=== PATIENT | female | born 1990 | race Caucasian/White ===

== ENCOUNTER 2023-03-19 07:15 | Inpatient (IN) | payer BC ==
[2023-03-19] MEDS ORDERED: Scopolamine 1.5 MG Transdermal Patch TRDERM ONE (08:00)
[2023-03-19] MEDS ORDERED: Celecoxib 200 MG Cap PO ONE (08:00)
[2023-03-19 08:07] LABS: HEMOGLOBIN A1C 5.3 % (4.5-6.2)
[2023-03-19] MEDS ORDERED: Dextrose 5%-Lactated Ringers 1,000 ML IV SCH ×2 (08:15→17:15)
[2023-03-19 08:20] LABS: ESTIMATED GFR 87 mL/min (>60)
[2023-03-19] MEDS ORDERED: Rocuronium 50 MG/5 ML Vial ONE (08:40)
[2023-03-19] MEDS ORDERED: Succinylcholine 200 MG/10 ML MDV ONE (08:40)
[2023-03-19] MEDS ORDERED: Neostigmine Methylsulfate 1 MG/ML 5 ML Syringe ONE (08:40)
[2023-03-19] MEDS ORDERED: Glycopyrrolate 0.2 MG/ML 5 ML MDV ONE (08:40)
[2023-03-19] MEDS ORDERED: Propofol 200 MG/20 ML SDV ONE (08:40)
[2023-03-19] MEDS ORDERED: Dexamethasone 4 MG/ML SDV ONE (08:40)
[2023-03-19] MEDS ORDERED: Ondansetron 4 MG/2 ML SDV ONE (08:40)
[2023-03-19] MEDS ORDERED: fentaNYL 250 MCG/5 ML SDV ONE ×3 (08:42→15:26)
[2023-03-19] MEDS ORDERED: cefOXitin 2 GM in Sodium Chloride 0.9% 50 ML IV ONE (09:00)
[2023-03-19] MEDS ORDERED: Ketamine 17 MG in Sodium Chloride 0.9% 19.83 ML IV SCH (09:30)
[2023-03-19] MEDS ORDERED: Ketamine 500 MG/5 ML MDV IV SCH (09:30)
[2023-03-19] MEDS ORDERED: cefOXitin 2 GM Vial ONE (12:49)
[2023-03-19] MEDS ORDERED: Indocyanine Green 25 MG SDV ONE (14:47)
[2023-03-19] MEDS ORDERED: Cyclobenzaprine 10 MG Tab PO PRN (17:06)
[2023-03-19] MEDS ORDERED: ALPRAZolam 0.5 MG Tab PO PRN (17:11)
[2023-03-19] MEDS ORDERED: HYDROmorphone 1 MG/ML Syringe IV PRN (18:00)
[2023-03-19] MEDS ORDERED: Metoclopramide 10 MG/2 ML SDV IVPUSH PRN (18:00)
[2023-03-19] MEDS ORDERED: Ondansetron 4 MG/2 ML SDV IVPUSH PRN (18:00)
[2023-03-19] MEDS ORDERED: MVI, Adult with Vitamin K 10 ML, Thiamine 200 MG, Zinc/Copper/Manganese/Selenium 1 ML i... IV SCH ×4 (18:00)
[2023-03-19] MEDS ORDERED: Acetaminophen 500 MG Tab PO PRN (18:00)
[2023-03-19] MEDS ORDERED: Labetalol 20 MG/4 ML Syringe IVPUSH PRN (18:00)
[2023-03-19] MEDS ORDERED: Pantoprazole 40 MG Vial IVPUSH SCH (18:00)
[2023-03-19] MEDS ORDERED: diphenhydrAMINE 50 MG/ML SDV IVPUSH PRN (18:00)
[2023-03-19] MEDS ORDERED: oxyCODONE 5 MG Tab PO PRN (18:00)
[2023-03-19] MEDS: SCOPOLAMINE PATCH CHECK TOP SCH (18:08)
[2023-03-19] MEDS: hydrOXYzine HCl 50 MG/ML SDV IM PRN ×2 (18:09→21:47)
[2023-03-19] MEDS: cefOXitin 2 GM in Sodium Chloride 0.9% 50 ML IV SCH (20:15)
[2023-03-19] MEDS: Heparin Sodium 5,000 Units/ML Vial SUBCUT SCH (20:15)
[2023-03-19] MEDS: Acetaminophen 500 MG Tab PO SCH (21:47)
[2023-03-20] MEDS: traMADol 50 MG Tab PO PRN ×2 (00:34→07:50)
[2023-03-20] MEDS: hydrOXYzine HCl 50 MG/ML SDV IM PRN ×3 (02:34→21:08)
[2023-03-20] MEDS: cefOXitin 2 GM in Sodium Chloride 0.9% 50 ML IV SCH ×3 (02:35→13:26)
[2023-03-20] MEDS ORDERED: Iopamidol 612 MG/ML 30 ML SDV PO STA (02:47)
[2023-03-20 04:42] LABS: ESTIMATED GFR 87 mL/min (>60)
[2023-03-20] MEDS: Acetaminophen 500 MG Tab PO SCH ×3 (05:11→21:03)
[2023-03-20] MEDS ORDERED: Ondansetron 4 MG Tab.DIS PO PRN (07:13)
[2023-03-20] MEDS ORDERED: hydrOXYzine HCl 25 MG Tab PO PRN (07:14)
[2023-03-20] MEDS ORDERED: Dextrose 5%-Lactated Ringers 1,000 ML IV SCH (07:15)
[2023-03-20] MEDS ORDERED: Potassium Phosphates 3 mMole/ML 15 ML SDV IV ONE (07:18)
[2023-03-20] MEDS: Heparin Sodium 5,000 Units/ML Vial SUBCUT SCH ×2 (07:59→20:04)
[2023-03-20] MEDS: Sodium Ferric Gluconate Cmplex 250 MG in Sodium Chloride 0.9% 100 ML IV SCH (09:43)
[2023-03-20] MEDS: Escitalopram 20 MG Tab PO SCH (09:55)
[2023-03-20] MEDS: Celecoxib 200 MG Cap PO SCH ×2 (09:55→21:09)
[2023-03-20] MEDS: buPROPion 150 MG Tab.ER PO SCH (09:55)
[2023-03-20] MEDS: SCOPOLAMINE PATCH CHECK TOP SCH (09:56)
[2023-03-20] MEDS: HYDROmorphone 0.5 MG/0.5 ML Syringe IVPUSH PRN (14:18)
[2023-03-20] MEDS: Potassium Phosphates 20 MMOLE in Sodium Chloride 0.9% 250 ML IV SCH ×2 (14:23→17:35)
[2023-03-20] MEDS ORDERED: Pantoprazole 40 MG Delayed-Release Granules 1 Packet PO SCH (16:30)
[2023-03-20] MEDS ORDERED: MVI, Adult with Vitamin K 10 ML, Thiamine 200 MG, Zinc/Copper/Manganese/Selenium 1 ML i... IV SCH ×8 (18:00→21:00)
[2023-03-21] MEDS: HYDROmorphone 0.5 MG/0.5 ML Syringe IVPUSH PRN (02:07)
[2023-03-21] MEDS: Acetaminophen 500 MG Tab PO SCH (05:38)
[2023-03-21] MEDS: Heparin Sodium 5,000 Units/ML Vial SUBCUT SCH (07:36)
[2023-03-21] MEDS ORDERED: HYDROmorphone 2 MG Tab PO PRN (07:37)
[2023-03-21] MEDS ORDERED: Cyanocobalamin (Vitamin B12) 1,000 MCG/ML SDV IM ONE (09:00)
[2023-03-21] MEDS: Sodium Ferric Gluconate Cmplex 250 MG in Sodium Chloride 0.9% 100 ML IV SCH (09:02)
[2023-03-21] MEDS: Escitalopram 20 MG Tab PO SCH (09:04)
[2023-03-21] MEDS: buPROPion 150 MG Tab.ER PO SCH (09:04)
[2023-03-21] MEDS: Celecoxib 200 MG Cap PO SCH (09:04)
[2023-03-21] MEDS: SCOPOLAMINE PATCH CHECK TOP SCH (09:09)
[2023-03-21] MEDS ORDERED: Hyoscyamine 0.125 MG Tab.SL SL SCH (12:00)
[2023-03-21] MEDS ORDERED: Acetaminophen Soln 650 MG/20.3 ML UD Cup PO SCH (14:00)
== END 2023-03-21 15:14 | disposition home or self-care (01) | DRG 403 ==
LOC: JP.SDSSCHI 07:19 → JP.2SS 17:03
PROVIDERS: ADMIT Surgery; ATTEND Surgery
PROC: 0DB64Z3 Excision of Stomach, Percutaneous Endoscopic Approach, Vertical (ICD-10-PCS; principal; 2023-03-19)
PROC: 0FB24ZX Excision of Left Lobe Liver, Percutaneous Endoscopic Approach, Diagnostic (ICD-10-PCS; 2023-03-19)
PROC: 0FT44ZZ Resection of Gallbladder, Percutaneous Endoscopic Approach (ICD-10-PCS; 2023-03-19)
PROC: 8E0W4CZ Robotic Assisted Procedure of Trunk Region, Percutaneous Endoscopic Approach (ICD-10-PCS; 2023-03-19)
DX: E66.01 Morbid (severe) obesity due to excess calories (principal); K82.8 Other specified diseases of gallbladder; R16.0 Hepatomegaly, not elsewhere classified; F41.9 Anxiety disorder, unspecified; F32.A Depression, unspecified; E78.5 Hyperlipidemia, unspecified; Z79.899 Other long term (current) drug therapy; Z68.39 Body mass index [BMI] 39.0-39.9, adult
CPT/HCPCS: 36415; 74240; 74240-26; 80053; 82728; 83036; 83735; 84100; 84703; 85025; 85027; 86850; 86900; 86901; 88304; 88307; 88313; A9270-GY; C9113; J0131; J0171; J0330; J0694; J1100; J1170; J1644; J2405; J2704; J2710; J2795; J2916; J3010; J3410; J3411; J3420; J3490; J7050; J7121; Q9967

== ENCOUNTER 2023-04-07 18:35 | Inpatient (IN) | payer BC ==
[2023-04-07] MEDS ORDERED: Ondansetron 4 MG/2 ML SDV IVPUSH PRN (19:23)
[2023-04-07] MEDS ORDERED: Naloxone 0.4 MG/ML SDV IVPUSH PRN (19:23)
[2023-04-07] MEDS ORDERED: diphenhydrAMINE 25 MG Cap PO PRN (19:23)
[2023-04-07] MEDS ORDERED: diphenhydrAMINE 50 MG/ML SDV IVPUSH PRN (19:23)
[2023-04-07] MEDS: HYDROmorphone/Normal Saline 6 MG/30 ML PCA Vial IV PRN (19:57)
[2023-04-07] MEDS: Dextrose 5%-Lactated Ringers 1,000 ML IV SCH (20:00)
[2023-04-07] MEDS: Escitalopram 10 MG Tab PO SCH (20:57)
[2023-04-07] MEDS: buPROPion 150 MG Tab.ER PO SCH (20:57)
[2023-04-08 04:54] LABS: HEMATOCRIT 37.1 % (34.3-46.0); HEMOGLOBIN 12.3 g/dL (11.2-15.5); MEAN CORPUSCULAR HEMOGLOBIN 28.3 pg (31.6-35.5); MEAN CORPUSCULAR HGB CONC 33.2 g/dL (31.6-35.5); MEAN CORPUSCULAR VOLUME 85.3 fL (81.4-99.0); RED BLOOD CELL COUNT 4.35 M/uL (3.77-5.24); WHITE BLOOD CELL COUNT,WBC 7.8 K/uL (3.2-11.0)
[2023-04-08 05:13] LABS: A/G RATIO 0.8 (1.2-2.2); ALANINE AMINOTRANSFERASE,ALT 35 U/L (12-78); ALKALINE PHOSPHATASE 104 U/L (46-116); ASPARTATE AMNIOTRANSFERASE,AST 21 U/L (15-37); BILIRUBIN TOTAL 0.6 mg/dL (0.2-1.0); BLOOD UREA NITROGEN,BUN 3 mg/dL (7-18); CALCIUM 8.6 mg/dL (8.5-10.1); CARBON DIOXIDE,CO2 24 mmol/L (21-32); CHLORIDE,CL 103 mmol/L (100-108); CREATININE 0.6 mg/dL (0.6-1.0); ESTIMATED GFR 121 mL/min (>60); GLUCOSE RANDOM 111 mg/dL (74-106); MAGNESIUM 1.6 mg/dL (1.8-2.4); PHOSPHORUS 3.6 mg/dL (2.5-4.9); POTASSIUM,K 3.5 mmol/L (3.6-5.2); PROTEIN TOTAL,TP 6.8 g/dL (6.4-8.2); SODIUM,NA 136 mmol/L (140-148)
[2023-04-08 05:18] LABS: ANION GAP 12.5 mmol/L (5.0-14.0)
[2023-04-08] MEDS ORDERED: fentaNYL 50 MCG/ML SDV ONE (07:03)
[2023-04-08] MEDS ORDERED: Midazolam 1 MG/ML 2 ML SDV ONE (07:03)
[2023-04-08] MEDS ORDERED: Propofol 200 MG/20 ML SDV ONE (07:03)
[2023-04-08] MEDS ORDERED: Glycopyrrolate 0.2 MG/ML 2 ML SDV IVPUSH ONE (07:30)
[2023-04-08] MEDS ORDERED: Naloxone 0.4 MG/ML SDV IV PRN (08:00)
[2023-04-08] MEDS ORDERED: Hyoscyamine 0.125 MG Tab.SL SL PRN (11:41)
[2023-04-08] MEDS: Metoclopramide 10 MG/2 ML SDV IV SCH ×3 (12:40→23:28)
[2023-04-08] MEDS ORDERED: MVI, Adult with Vitamin K 10 ML, Zinc/Copper/Manganese/Selenium 1 ML, Thiamine 200 MG i... IV ONE ×4 (14:00)
[2023-04-08] MEDS: SIMETHICONE PO SCH ×2 (16:57)
[2023-04-08] MEDS: LIDOCAINE 2% PO SCH ×2 (16:57)
[2023-04-08] MEDS: MAGNESIUM HYDROXIDE PO SCH ×2 (16:57)
[2023-04-08] MEDS: ALUMINUM HYDROXIDE PO SCH ×2 (16:57)
[2023-04-08] MEDS: Hyoscyamine 0.125 MG Tab.SL SL SCH (16:57)
[2023-04-08] MEDS: Escitalopram 10 MG Tab PO SCH (21:16)
[2023-04-08] MEDS: buPROPion 150 MG Tab.ER PO SCH (21:17)
[2023-04-08] MEDS: Dextrose 5%-Lactated Ringers 1,000 ML IV SCH (23:30)
[2023-04-09] MEDS: HYDROmorphone/Normal Saline 6 MG/30 ML PCA Vial IV PRN (01:32)
[2023-04-09] MEDS: Metoclopramide 10 MG/2 ML SDV IV SCH ×2 (05:35→14:17)
[2023-04-09] MEDS ORDERED: Acetaminophen 500 MG Tab PO PRN (07:03)
[2023-04-09] MEDS ORDERED: Ondansetron 4 MG Tab.DIS PO PRN (07:06)
[2023-04-09] MEDS: ALUMINUM HYDROXIDE PO SCH ×6 (08:38→17:07)
[2023-04-09] MEDS: SIMETHICONE PO SCH ×6 (08:38→17:07)
[2023-04-09] MEDS: MAGNESIUM HYDROXIDE PO SCH ×6 (08:38→17:07)
[2023-04-09] MEDS: Hyoscyamine 0.125 MG Tab.SL SL SCH ×3 (08:38→17:07)
[2023-04-09] MEDS: LIDOCAINE 2% PO SCH ×6 (08:38→17:07)
[2023-04-09] MEDS ORDERED: Bisacodyl 5 MG Tab PO SCH (09:00)
[2023-04-09] MEDS ORDERED: Docusate Sodium 100 MG Cap PO SCH (09:00)
[2023-04-09] MEDS: Magnesium Sulfate/Water 2 GM in Premix Bag 1 BAG IV SCH ×2 (10:00→15:39)
== END 2023-04-09 17:15 | disposition home or self-care (01) | DRG 254 ==
LOC: JP.MS 18:35
PROVIDERS: ADMIT Surgery; ATTEND Surgery
PROC: 0DJ08ZZ Inspection of Upper Intestinal Tract, Via Natural or Artificial Opening Endoscopic (ICD-10-PCS; principal; 2023-04-08)
DX: R13.10 Dysphagia, unspecified (principal); R10.13 Epigastric pain; Z98.84 Bariatric surgery status; F41.9 Anxiety disorder, unspecified; F32.A Depression, unspecified; K21.9 Gastro-esophageal reflux disease without esophagitis; E66.9 Obesity, unspecified; R51.9 Headache, unspecified; G89.29 Other chronic pain; Z79.899 Other long term (current) drug therapy; Z86.16 Personal history of COVID-19; Z68.35 Body mass index [BMI] 35.0-35.9, adult
CPT/HCPCS: 36415; 74176; 74176-26; 80053; 83735; 84100; 85027; A9270-GY; J1170; J2250; J2405; J2704; J2765; J3010; J3411; J3475; J3490; J7121

== ENCOUNTER 2023-04-21 17:28 | Inpatient (IN) | payer BC ==
[2023-04-21] MEDS ORDERED: Sodium Chloride 0.9% 1,000 ML IV SCH (18:15)
[2023-04-21 18:26] LABS: BASOPHILS ABSOLUTE AUTO 0.03 K/uL (0.00-0.10); BASOPHILS PERCENT AUTO 0.4 % (0.1-1.3); EOSINOPHILS ABSOLUTE AUTO 0.13 K/uL (0.00-0.40); EOSINOPHILS PERCENT AUTO 1.6 % (0.0-5.4); HEMATOCRIT 41.9 % (34.3-46.0); HEMOGLOBIN 14.4 g/dL (11.2-15.5); IMMATURE GRAN ABSOLUTE AUTO 0.03 K/uL (0.00-0.23); IMMATURE GRAN PERCENT AUTO 0.4 % (0.0-0.7); LYMPHOCYTES ABSOLUTE AUTO 1.88 K/uL (0.8-3.3); LYMPHOCYTES PERCENT AUTO 23.3 % (11.4-47.7); MEAN CORPUSCULAR HGB CONC 34.4 g/dL (31.6-35.5); MEAN CORPUSCULAR VOLUME 81.5 fL (81.4-99.0); MONOCYTES ABSOLUTE AUTO 0.67 K/uL (0.20-0.90); MONOCYTES PERCENT AUTO 8.3 % (3.3-12.6); NEUTROPHILS ABSOLUTE AUTO 5.34 K/uL (1.0-7.6); PLATELET COUNT,PLT 243 K/uL (130-375); RED BLOOD CELL COUNT 5.14 M/uL (3.77-5.24); WHITE BLOOD CELL COUNT,WBC 8.1 K/uL (3.2-11.0)
[2023-04-21] MEDS ORDERED: fentaNYL 50 MCG/ML SDV IVPUSH ONE (18:52)
[2023-04-21 18:57] LABS: A/G RATIO 0.7 (1.2-2.2); ALANINE AMINOTRANSFERASE,ALT 63 U/L (12-78); ALBUMIN 3.3 g/dL (3.4-5.0); ALKALINE PHOSPHATASE 123 U/L (46-116); ANION GAP 20.4 mmol/L (5.0-14.0); ASPARTATE AMNIOTRANSFERASE,AST 30 U/L (15-37); BILIRUBIN TOTAL 0.7 mg/dL (0.2-1.0); BLOOD UREA NITROGEN,BUN 8 mg/dL (7-18); CALCIUM 9.2 mg/dL (8.5-10.1); CARBON DIOXIDE,CO2 20 mmol/L (21-32); CHLORIDE,CL 102 mmol/L (100-108); CREATININE 0.8 mg/dL (0.6-1.0); EST CRCL DRUG DOSING (CG) 93.63 mL/min; ESTIMATED GFR 100 mL/min (>60); GLUCOSE RANDOM 81 mg/dL (74-106); LIPASE 168 U/L (73-393); POTASSIUM,K 3.4 mmol/L (3.6-5.2); PROTEIN TOTAL,TP 7.9 g/dL (6.4-8.2); SODIUM,NA 139 mmol/L (140-148)
[2023-04-21] MEDS: Sodium Chloride 0.9% 10 ML Syringe FLUSH ONE ×2 (18:58→19:08)
[2023-04-21] MEDS ORDERED: Iopamidol 612 MG/ML 100 ML Bottle IV SCH (19:00)
[2023-04-21] MEDS ORDERED: Sodium Chloride 0.9% 50 ML IV SCH (19:00)
[2023-04-21] MEDS ORDERED: Ertapenem 1 GM in Sodium Chloride 0.9% 50 ML IV SCH (19:45)
[2023-04-21] MEDS ORDERED: LORazepam 2 MG/ML SDV IVPUSH ONE (20:00)
[2023-04-21] MEDS ORDERED: Naloxone 0.4 MG/ML SDV IVPUSH PRN ×2 (21:21)
[2023-04-21] MEDS ORDERED: HYDROmorphone/Normal Saline 6 MG/30 ML PCA Vial IV PRN (21:21)
[2023-04-21] MEDS ORDERED: diphenhydrAMINE 50 MG/ML SDV IVPUSH PRN (21:21)
[2023-04-21] MEDS ORDERED: LORazepam 2 MG/ML SDV IV PRN (21:21)
[2023-04-21] MEDS ORDERED: diphenhydrAMINE 25 MG Cap PO PRN (21:21)
[2023-04-21] MEDS ORDERED: Ondansetron 4 MG/2 ML SDV IVPUSH PRN (21:21)
[2023-04-21] MEDS ORDERED: Albuterol 0.083% 2.5 MG/3 ML Neb Soln NEB PRN (21:21)
[2023-04-21] MEDS ORDERED: Albuterol/Ipratropium 3.0-0.5 MG/3 ML Neb Soln NEB PRN (21:21)
[2023-04-21] MEDS: Dextrose 5%-Lactated Ringers 1,000 ML IV SCH (21:49)
[2023-04-21] MEDS: Pantoprazole 40 MG Vial IV SCH (22:04)
[2023-04-22] MEDS: Dextrose 5%-Lactated Ringers 1,000 ML IV SCH (05:39)
[2023-04-22 05:43] LABS: BASOPHILS ABSOLUTE AUTO 0.03 K/uL (0.00-0.10); BASOPHILS PERCENT AUTO 0.5 % (0.1-1.3); EOSINOPHILS ABSOLUTE AUTO 0.19 K/uL (0.00-0.40); HEMATOCRIT 36.8 % (34.3-46.0); HEMOGLOBIN 12.6 g/dL (11.2-15.5); IMMATURE GRAN PERCENT AUTO 0.3 % (0.0-0.7); LYMPHOCYTES ABSOLUTE AUTO 1.86 K/uL (0.8-3.3); LYMPHOCYTES PERCENT AUTO 29.7 % (11.4-47.7); MEAN CORPUSCULAR HEMOGLOBIN 27.9 pg (31.6-35.5); MEAN CORPUSCULAR HGB CONC 34.2 g/dL (31.6-35.5); MEAN CORPUSCULAR VOLUME 81.4 fL (81.4-99.0); MONOCYTES ABSOLUTE AUTO 0.53 K/uL (0.20-0.90); MONOCYTES PERCENT AUTO 8.5 % (3.3-12.6); NEUTROPHILS ABSOLUTE AUTO 3.63 K/uL (1.0-7.6); PLATELET COUNT,PLT 195 K/uL (130-375); RED BLOOD CELL COUNT 4.52 M/uL (3.77-5.24); WHITE BLOOD CELL COUNT,WBC 6.3 K/uL (3.2-11.0)
[2023-04-22 05:52] LABS: IMMATURE GRAN ABSOLUTE AUTO 0.02 K/uL (0.00-0.23)
[2023-04-22 05:57] LABS: CALCIUM 8.4 mg/dL (8.5-10.1); CREATININE 0.6 mg/dL (0.6-1.0); EST CRCL DRUG DOSING (CG) 124.85 mL/min; MAGNESIUM 1.7 mg/dL (1.8-2.4)
[2023-04-22 06:01] LABS: ANION GAP 16.9 mmol/L (5.0-14.0); POTASSIUM,K 2.9 mmol/L (3.6-5.2)
[2023-04-22] MEDS: Potassium Chloride 10 MEQ in Premix Bag 1 BAG IV SCH ×2 (06:19→08:43)
[2023-04-22] MEDS ORDERED: Ketamine 500 MG/5 ML MDV IV SCH ×3 (07:30→10:00)
[2023-04-22] MEDS ORDERED: Bupivacaine 0.5% 50 ML MDV ONE (08:00)
[2023-04-22] MEDS ORDERED: Meropenem 500 MG SDV ONE (08:00)
[2023-04-22] MEDS ORDERED: Lidocaine 1% with EPINEPHrine 1:100,000 50 ML MDV ONE (08:01)
[2023-04-22] MEDS ORDERED: Potassium Chloride 20 MEQ, Lidocaine 1% 2 ML in Sodium Chloride 0.9% 100 ML IV ONE (09:30)
[2023-04-22] MEDS ORDERED: Ketamine 17 MG in Sodium Chloride 0.9% 19.83 ML IV SCH (10:00)
[2023-04-22] MEDS ORDERED: Meropenem 500 MG in Sodium Chloride 0.9% 50 ML IV ONE (10:00)
[2023-04-22] MEDS: Magnesium Sulfate/Water 2 GM in Premix Bag 1 BAG IV SCH ×3 (10:27→22:36)
[2023-04-22] MEDS: Pantoprazole 40 MG Vial IV SCH (10:32)
[2023-04-22] MEDS ORDERED: fentaNYL 250 MCG/5 ML SDV ONE (10:58)
[2023-04-22] MEDS ORDERED: Midazolam 1 MG/ML 2 ML SDV ONE (10:58)
[2023-04-22] MEDS ORDERED: Propofol 200 MG/20 ML SDV ONE (10:59)
[2023-04-22] MEDS ORDERED: Ondansetron 4 MG/2 ML SDV ONE (10:59)
[2023-04-22] MEDS ORDERED: Dexamethasone 4 MG/ML SDV ONE (10:59)
[2023-04-22] MEDS ORDERED: Ondansetron 4 MG/2 ML SDV IVPUSH PRN (12:18)
[2023-04-22] MEDS ORDERED: diphenhydrAMINE 25 MG Cap PO PRN (12:18)
[2023-04-22] MEDS ORDERED: diphenhydrAMINE 50 MG/ML SDV IVPUSH PRN (12:18)
[2023-04-22] MEDS ORDERED: Naloxone 0.4 MG/ML SDV IVPUSH PRN (12:18)
[2023-04-22] MEDS ORDERED: Rocuronium 50 MG/5 ML Vial ONE (12:26)
[2023-04-22] MEDS ORDERED: Sugammadex Sodium 200 MG/2 ML VIAL ONE (12:41)
[2023-04-22] MEDS ORDERED: Glycopyrrolate 0.2 MG/ML 5 ML MDV ONE (12:46)
[2023-04-22] MEDS ORDERED: Naloxone 0.4 MG/ML SDV IV PRN (13:00)
[2023-04-22] MEDS ORDERED: Sodium Chloride 0.9% 10 ML ONE (13:00)
[2023-04-22] MEDS ORDERED: Lactated Ringers 1,000 ML ONE (13:17)
[2023-04-22] MEDS: fentaNYL/Normal Saline 600 MCG/30 ML PCA Vial IV SCH ×2 (13:27→21:56)
[2023-04-22] MEDS ORDERED: Linezolid 600 MG/300 ML Premix Bag IRR ONE (13:30)
[2023-04-22] MEDS ORDERED: fentaNYL 100 MCG/2 ML SDV ONE (13:49)
[2023-04-22] MEDS ORDERED: hydrOXYzine HCl 50 MG/ML SDV IM ONE (14:29)
[2023-04-22] MEDS ORDERED: Metoclopramide 10 MG/2 ML SDV IVPUSH PRN (15:00)
[2023-04-22] MEDS ORDERED: Labetalol 20 MG/4 ML Syringe IVPUSH PRN (15:00)
[2023-04-22] MEDS ORDERED: Acetaminophen 500 MG Tab PO PRN (15:00)
[2023-04-22] MEDS: Cyclobenzaprine 10 MG Tab PO PRN (15:36)
[2023-04-22] MEDS: MVI, Adult with Vitamin K 10 ML, Thiamine 200 MG, Zinc/Copper/Manganese/Selenium 1 ML i... IV SCH ×4 (17:11)
[2023-04-22] MEDS: Acetaminophen 500 MG Tab PO SCH (17:11)
[2023-04-22] MEDS: Heparin Sodium 5,000 Units/ML Vial SUBCUT SCH (17:11)
[2023-04-22] MEDS: Meropenem 500 MG in Sodium Chloride 0.9% 50 ML IV SCH (19:31)
[2023-04-22] MEDS: Escitalopram 10 MG Tab PO SCH (22:36)
[2023-04-22] MEDS: buPROPion 150 MG Tab.ER PO SCH (22:36)
[2023-04-23] MEDS: Dextrose 5%-Lactated Ringers 1,000 ML IV SCH ×2 (00:48→10:48)
[2023-04-23] MEDS: Meropenem 500 MG in Sodium Chloride 0.9% 50 ML IV SCH ×4 (02:17→20:11)
[2023-04-23] MEDS: Magnesium Sulfate/Water 2 GM in Premix Bag 1 BAG IV SCH ×4 (03:17→21:50)
[2023-04-23] MEDS: Acetaminophen 500 MG Tab PO SCH ×3 (03:20→23:02)
[2023-04-23] MEDS ORDERED: Iopamidol 612 MG/ML 30 ML SDV PO STA (04:18)
[2023-04-23 05:08] LABS: BASOPHILS PERCENT AUTO 0.1 % (0.1-1.3); EOSINOPHILS PERCENT AUTO 0.1 % (0.0-5.4); HEMOGLOBIN 12.6 g/dL (11.2-15.5); IMMATURE GRAN ABSOLUTE AUTO 0.05 K/uL (0.00-0.23); IMMATURE GRAN PERCENT AUTO 0.5 % (0.0-0.7); LYMPHOCYTES ABSOLUTE AUTO 0.56 K/uL (0.8-3.3); LYMPHOCYTES PERCENT AUTO 5.6 % (11.4-47.7); MEAN CORPUSCULAR HEMOGLOBIN 27.6 pg (31.6-35.5); MEAN CORPUSCULAR HGB CONC 34.1 g/dL (31.6-35.5); MEAN CORPUSCULAR VOLUME 81.1 fL (81.4-99.0); MONOCYTES ABSOLUTE AUTO 0.45 K/uL (0.20-0.90); MONOCYTES PERCENT AUTO 4.5 % (3.3-12.6); NEUTROPHILS ABSOLUTE AUTO 8.97 K/uL (1.0-7.6); NEUTROPHILS PERCENT AUTO 89.2 % (40.0-78.1); PLATELET COUNT,PLT 225 K/uL (130-375); RED BLOOD CELL COUNT 4.56 M/uL (3.77-5.24); WHITE BLOOD CELL COUNT,WBC 10.1 K/uL (3.2-11.0)
[2023-04-23 05:21] LABS: BASOPHILS ABSOLUTE AUTO 0.01 K/uL (0.00-0.10); EOSINOPHILS ABSOLUTE AUTO 0.01 K/uL (0.00-0.40)
[2023-04-23 05:38] LABS: A/G RATIO 0.7 (1.2-2.2); ALANINE AMINOTRANSFERASE,ALT 58 U/L (12-78); ALBUMIN 2.7 g/dL (3.4-5.0); ALKALINE PHOSPHATASE 103 U/L (46-116); ASPARTATE AMNIOTRANSFERASE,AST 32 U/L (15-37); BILIRUBIN TOTAL 0.5 mg/dL (0.2-1.0); BLOOD UREA NITROGEN,BUN 2 mg/dL (7-18); CALCIUM 8.3 mg/dL (8.5-10.1); CARBON DIOXIDE,CO2 24 mmol/L (21-32); CHLORIDE,CL 105 mmol/L (100-108); CREATININE 0.5 mg/dL (0.6-1.0); EST CRCL DRUG DOSING (CG) 149.81 mL/min; ESTIMATED GFR 127 mL/min (>60); GLUCOSE RANDOM 153 mg/dL (74-106); MAGNESIUM 3.1 mg/dL (1.8-2.4); POTASSIUM,K 3.1 mmol/L (3.6-5.2); PRO B-TYPE NATRIUR PEPT,BNPPRO 158 pg/mL (5-125); PROTEIN TOTAL,TP 6.6 g/dL (6.4-8.2); SODIUM,NA 137 mmol/L (140-148)
[2023-04-23 05:40] LABS: ANION GAP 11.1 mmol/L (5.0-14.0)
[2023-04-23] MEDS: Heparin Sodium 5,000 Units/ML Vial SUBCUT SCH ×2 (06:22→18:06)
[2023-04-23] MEDS ORDERED: Potassium Phosphates 3 mMole/ML 15 ML SDV IV ONE (07:14)
[2023-04-23] MEDS: fentaNYL/Normal Saline 600 MCG/30 ML PCA Vial IV SCH ×3 (08:27→21:45)
[2023-04-23] MEDS: Celecoxib 200 MG Cap PO SCH ×2 (09:33→20:13)
[2023-04-23] MEDS: hydrOXYzine HCl 50 MG/ML SDV IM PRN ×2 (09:56→21:50)
[2023-04-23] MEDS: Pantoprazole 40 MG Vial IV SCH (10:41)
[2023-04-23] MEDS ORDERED: Potassium Phos in 0.9 % NaCl 15 MMOL in Premix Bag 1 BAG IV SCH ×2 (11:00)
[2023-04-23] MEDS: Potassium Phosphates 20 MMOLE in Sodium Chloride 0.9% 250 ML IV SCH ×3 (11:27→18:03)
[2023-04-23] MEDS: MVI, Adult with Vitamin K 10 ML, Thiamine 200 MG, Zinc/Copper/Manganese/Selenium 1 ML i... IV SCH ×4 (16:35)
[2023-04-23] MEDS: buPROPion 150 MG Tab.ER PO SCH (20:13)
[2023-04-23] MEDS: Escitalopram 10 MG Tab PO SCH (20:13)
[2023-04-24] MEDS: Meropenem 500 MG in Sodium Chloride 0.9% 50 ML IV SCH ×4 (01:46→19:55)
[2023-04-24] MEDS: Dextrose 5%-Lactated Ringers 1,000 ML IV SCH (02:42)
[2023-04-24] MEDS: Magnesium Sulfate/Water 2 GM in Premix Bag 1 BAG IV SCH (02:43)
[2023-04-24 04:31] LABS: HEMATOCRIT 31.6 % (34.3-46.0); HEMOGLOBIN 10.6 g/dL (11.2-15.5); MEAN CORPUSCULAR HEMOGLOBIN 27.9 pg (31.6-35.5); MEAN CORPUSCULAR HGB CONC 33.5 g/dL (31.6-35.5); MEAN CORPUSCULAR VOLUME 83.2 fL (81.4-99.0); RED BLOOD CELL COUNT 3.8 M/uL (3.77-5.24); WHITE BLOOD CELL COUNT,WBC 9.1 K/uL (3.2-11.0)
[2023-04-24 04:48] LABS: A/G RATIO 0.6 (1.2-2.2); ALANINE AMINOTRANSFERASE,ALT 45 U/L (12-78); ALBUMIN 2.1 g/dL (3.4-5.0); ALKALINE PHOSPHATASE 95 U/L (46-116); ASPARTATE AMNIOTRANSFERASE,AST 30 U/L (15-37); BILIRUBIN TOTAL 0.5 mg/dL (0.2-1.0); BLOOD UREA NITROGEN,BUN 2 mg/dL (7-18); CALCIUM 7.7 mg/dL (8.5-10.1); CARBON DIOXIDE,CO2 28 mmol/L (21-32); CHLORIDE,CL 107 mmol/L (100-108); CREATININE 0.6 mg/dL (0.6-1.0); EST CRCL DRUG DOSING (CG) 125.53 mL/min; ESTIMATED GFR 121 mL/min (>60); GLUCOSE RANDOM 100 mg/dL (74-106); PHOSPHORUS 3.9 mg/dL (2.5-4.9); POTASSIUM,K 3.2 mmol/L (3.6-5.2); PROTEIN TOTAL,TP 5.5 g/dL (6.4-8.2); SODIUM,NA 142 mmol/L (140-148)
[2023-04-24 05:12] LABS: ANION GAP 10.2 mmol/L (5.0-14.0)
[2023-04-24] MEDS: fentaNYL/Normal Saline 600 MCG/30 ML PCA Vial IV SCH ×2 (05:25→16:42)
[2023-04-24] MEDS: Heparin Sodium 5,000 Units/ML Vial SUBCUT SCH ×2 (05:50→17:21)
[2023-04-24] MEDS: Acetaminophen 500 MG Tab PO SCH ×3 (05:51→21:03)
[2023-04-24] MEDS ORDERED: Midazolam 1 MG/ML 2 ML SDV ONE (06:38)
[2023-04-24] MEDS ORDERED: fentaNYL 50 MCG/ML SDV ONE (06:38)
[2023-04-24] MEDS ORDERED: Propofol 200 MG/20 ML SDV ONE ×2 (06:38→08:03)
[2023-04-24] MEDS ORDERED: Lidocaine 1% with EPINEPHrine 1:100,000 50 ML MDV ONE (06:43)
[2023-04-24] MEDS ORDERED: Bupivacaine 0.5% 50 ML MDV ONE (06:43)
[2023-04-24] MEDS ORDERED: Meropenem 500 MG SDV ONE (06:43)
[2023-04-24] MEDS ORDERED: Dextrose 5%-Lactated Ringers 1,000 ML IV SCH (08:30)
[2023-04-24] MEDS ORDERED: Cyanocobalamin (Vitamin B12) 1,000 MCG/ML SDV IM ONE (09:00)
[2023-04-24] MEDS: Celecoxib 200 MG Cap PO SCH ×2 (09:04→20:04)
[2023-04-24] MEDS: Pantoprazole 40 MG Vial IV SCH (09:06)
[2023-04-24] MEDS: 1: AA 5%/Calcium/D15W/Lytes 1,000 ML with MVI, Adult with Vitamin K 10 ML, Zinc/Copper/M IV SCH ×6 (12:22→22:44)
[2023-04-24] MEDS: buPROPion 150 MG Tab.ER PO SCH (20:04)
[2023-04-24] MEDS: Escitalopram 10 MG Tab PO SCH (20:04)
[2023-04-24] MEDS: hydrOXYzine HCl 50 MG/ML SDV IM PRN (22:23)
[2023-04-25] MEDS: Meropenem 500 MG in Sodium Chloride 0.9% 50 ML IV SCH ×4 (03:23→19:46)
[2023-04-25 04:13] LABS: BASOPHILS PERCENT AUTO 0.2 % (0.1-1.3); HEMATOCRIT 30.3 % (34.3-46.0); HEMOGLOBIN 10.1 g/dL (11.2-15.5); IMMATURE GRAN ABSOLUTE AUTO 0.03 K/uL (0.00-0.23); IMMATURE GRAN PERCENT AUTO 0.5 % (0.0-0.7); LYMPHOCYTES ABSOLUTE AUTO 0.73 K/uL (0.8-3.3); LYMPHOCYTES PERCENT AUTO 11.9 % (11.4-47.7); MEAN CORPUSCULAR HEMOGLOBIN 28.3 pg (31.6-35.5); MEAN CORPUSCULAR HGB CONC 33.3 g/dL (31.6-35.5); MEAN CORPUSCULAR VOLUME 84.9 fL (81.4-99.0); MONOCYTES ABSOLUTE AUTO 0.46 K/uL (0.20-0.90); MONOCYTES PERCENT AUTO 7.5 % (3.3-12.6); NEUTROPHILS ABSOLUTE AUTO 4.92 K/uL (1.0-7.6); NEUTROPHILS PERCENT AUTO 79.9 % (40.0-78.1); PLATELET COUNT,PLT 208 K/uL (130-375); RED BLOOD CELL COUNT 3.57 M/uL (3.77-5.24); WHITE BLOOD CELL COUNT,WBC 6.2 K/uL (3.2-11.0)
[2023-04-25] MEDS: fentaNYL/Normal Saline 600 MCG/30 ML PCA Vial IV SCH ×3 (04:13→23:59)
[2023-04-25 04:19] LABS: BASOPHILS ABSOLUTE AUTO 0.01 K/uL (0.00-0.10)
[2023-04-25 04:36] LABS: A/G RATIO 0.7 (1.2-2.2); ALANINE AMINOTRANSFERASE,ALT 44 U/L (12-78); ALBUMIN 2.4 g/dL (3.4-5.0); ALKALINE PHOSPHATASE 90 U/L (46-116); ASPARTATE AMNIOTRANSFERASE,AST 28 U/L (15-37); BILIRUBIN TOTAL 0.3 mg/dL (0.2-1.0); BLOOD UREA NITROGEN,BUN 9 mg/dL (7-18); CALCIUM 7.9 mg/dL (8.5-10.1); CARBON DIOXIDE,CO2 32 mmol/L (21-32); CHLORIDE,CL 106 mmol/L (100-108); CREATININE 0.5 mg/dL (0.6-1.0); EST CRCL DRUG DOSING (CG) 150.63 mL/min; ESTIMATED GFR 127 mL/min (>60); GLUCOSE RANDOM 113 mg/dL (74-106); MAGNESIUM 2.4 mg/dL (1.8-2.4); PHOSPHORUS 2.7 mg/dL (2.5-4.9); POTASSIUM,K 3.3 mmol/L (3.6-5.2); PROTEIN TOTAL,TP 5.8 g/dL (6.4-8.2); SODIUM,NA 143 mmol/L (140-148)
[2023-04-25 04:40] LABS: ANION GAP 8.3 mmol/L (5.0-14.0)
[2023-04-25] MEDS: Acetaminophen 500 MG Tab PO SCH ×3 (05:07→23:14)
[2023-04-25] MEDS ORDERED: Midazolam 1 MG/ML 2 ML SDV ONE (06:51)
[2023-04-25] MEDS ORDERED: fentaNYL 50 MCG/ML SDV ONE (06:51)
[2023-04-25] MEDS ORDERED: Propofol 200 MG/20 ML SDV ONE (06:52)
[2023-04-25] MEDS: Heparin Sodium 5,000 Units/ML Vial SUBCUT SCH ×2 (07:09→17:54)
[2023-04-25] MEDS: 1: AA 5%/Calcium/D15W/Lytes 1,000 ML with MVI, Adult with Vitamin K 10 ML, Zinc/Copper/M IV SCH ×6 (08:15→17:55)
[2023-04-25 08:22] LABS: AMYLASE,BODY FLUID 97063 U/L
[2023-04-25 08:24] LABS: AMYLASE BODY FLUID TYPE JP DRAINAGE #1
[2023-04-25] MEDS ORDERED: Glycopyrrolate 0.2 MG/ML 2 ML SDV IVPUSH ONE (08:30)
[2023-04-25] MEDS ORDERED: Lactated Ringers 1,000 ML ONE (09:33)
[2023-04-25] MEDS: Celecoxib 200 MG Cap PO SCH ×2 (09:48→20:46)
[2023-04-25] MEDS: Pantoprazole 40 MG Vial IV SCH (10:53)
[2023-04-25] MEDS: hydrOXYzine HCl 50 MG/ML SDV IM PRN ×2 (16:18→20:56)
[2023-04-25] MEDS: buPROPion 150 MG Tab.ER PO SCH (20:46)
[2023-04-25] MEDS: Escitalopram 10 MG Tab PO SCH (20:46)
[2023-04-25] MEDS: LORazepam 2 MG/ML SDV IVPUSH PRN (21:39)
[2023-04-26] MEDS: Meropenem 500 MG in Sodium Chloride 0.9% 50 ML IV SCH ×4 (02:05→20:18)
[2023-04-26] MEDS: 1: AA 5%/Calcium/D15W/Lytes 1,000 ML with MVI, Adult with Vitamin K 10 ML, Zinc/Copper/M IV SCH ×6 (04:13→14:39)
[2023-04-26 04:31] LABS: BASOPHILS PERCENT AUTO 0.2 % (0.1-1.3); EOSINOPHILS ABSOLUTE AUTO 0.24 K/uL (0.00-0.40); HEMATOCRIT 34.3 % (34.3-46.0); HEMOGLOBIN 11.3 g/dL (11.2-15.5); IMMATURE GRAN ABSOLUTE AUTO 0.03 K/uL (0.00-0.23); IMMATURE GRAN PERCENT AUTO 0.4 % (0.0-0.7); LYMPHOCYTES ABSOLUTE AUTO 2.72 K/uL (0.8-3.3); LYMPHOCYTES PERCENT AUTO 33.8 % (11.4-47.7); MEAN CORPUSCULAR HEMOGLOBIN 27.9 pg (31.6-35.5); MEAN CORPUSCULAR HGB CONC 32.9 g/dL (31.6-35.5); MEAN CORPUSCULAR VOLUME 84.7 fL (81.4-99.0); MONOCYTES ABSOLUTE AUTO 0.59 K/uL (0.20-0.90); MONOCYTES PERCENT AUTO 7.3 % (3.3-12.6); NEUTROPHILS ABSOLUTE AUTO 4.44 K/uL (1.0-7.6); NEUTROPHILS PERCENT AUTO 55.3 % (40.0-78.1); PLATELET COUNT,PLT 264 K/uL (130-375); RED BLOOD CELL COUNT 4.05 M/uL (3.77-5.24)
[2023-04-26 04:32] LABS: BASOPHILS ABSOLUTE AUTO 0.02 K/uL (0.00-0.10)
[2023-04-26 04:52] LABS: A/G RATIO 0.8 (1.2-2.2); ALANINE AMINOTRANSFERASE,ALT 37 U/L (12-78); ALBUMIN 2.8 g/dL (3.4-5.0); ALKALINE PHOSPHATASE 98 U/L (46-116); ANION GAP 7.9 mmol/L (5.0-14.0); ASPARTATE AMNIOTRANSFERASE,AST 28 U/L (15-37); BILIRUBIN TOTAL 0.4 mg/dL (0.2-1.0); BLOOD UREA NITROGEN,BUN 18 mg/dL (7-18); CALCIUM 8.4 mg/dL (8.5-10.1); CARBON DIOXIDE,CO2 31 mmol/L (21-32); CHLORIDE,CL 104 mmol/L (100-108); CREATININE 0.5 mg/dL (0.6-1.0); EST CRCL DRUG DOSING (CG) 150.63 mL/min; ESTIMATED GFR 127 mL/min (>60); GLUCOSE RANDOM 84 mg/dL (74-106); MAGNESIUM 2.2 mg/dL (1.8-2.4); PHOSPHORUS 4.6 mg/dL (2.5-4.9); POTASSIUM,K 3.7 mmol/L (3.6-5.2); PROTEIN TOTAL,TP 6.3 g/dL (6.4-8.2); SODIUM,NA 143 mmol/L (140-148)
[2023-04-26] MEDS: Acetaminophen 500 MG Tab PO SCH ×3 (05:23→22:33)
[2023-04-26] MEDS: Heparin Sodium 5,000 Units/ML Vial SUBCUT SCH ×2 (05:24→17:37)
[2023-04-26] MEDS ORDERED: Central Total Parenteral Nutrition Bag SCH (07:45)
[2023-04-26] MEDS: Celecoxib 200 MG Cap PO SCH ×2 (08:13→20:13)
[2023-04-26] MEDS: Pantoprazole 40 MG Vial IV SCH (09:50)
[2023-04-26] MEDS: fentaNYL/Normal Saline 600 MCG/30 ML PCA Vial IV SCH ×2 (13:42→20:05)
[2023-04-26] MEDS: Ciprofloxacin in D5W 400 MG in Premix Bag 1 BAG IV SCH ×2 (15:31)
[2023-04-26] MEDS: Escitalopram 10 MG Tab PO SCH (20:13)
[2023-04-26] MEDS: buPROPion 150 MG Tab.ER PO SCH (20:13)
[2023-04-26] MEDS: LORazepam 2 MG/ML SDV IVPUSH PRN (22:53)
[2023-04-27] MEDS: 1: AA 5%/Calcium/D15W/Lytes 1,000 ML with MVI, Adult with Vitamin K 10 ML, Zinc/Copper/M IV SCH ×9 (00:50→21:34)
[2023-04-27] MEDS: Meropenem 500 MG in Sodium Chloride 0.9% 50 ML IV SCH ×4 (02:02→19:52)
[2023-04-27] MEDS: Ciprofloxacin in D5W 400 MG in Premix Bag 1 BAG IV SCH ×4 (04:16→15:43)
[2023-04-27 04:57] LABS: HEMATOCRIT 29.4 % (34.3-46.0); HEMOGLOBIN 9.6 g/dL (11.2-15.5); MEAN CORPUSCULAR HEMOGLOBIN 27.9 pg (31.6-35.5); MEAN CORPUSCULAR HGB CONC 32.7 g/dL (31.6-35.5); MEAN CORPUSCULAR VOLUME 85.5 fL (81.4-99.0); RED BLOOD CELL COUNT 3.44 M/uL (3.77-5.24)
[2023-04-27 05:26] LABS: A/G RATIO 0.9 (1.2-2.2); ALANINE AMINOTRANSFERASE,ALT 47 U/L (12-78); ALBUMIN 2.6 g/dL (3.4-5.0); ALKALINE PHOSPHATASE 96 U/L (46-116); ASPARTATE AMNIOTRANSFERASE,AST 41 U/L (15-37); BILIRUBIN TOTAL 0.5 mg/dL (0.2-1.0); BLOOD UREA NITROGEN,BUN 16 mg/dL (7-18); CARBON DIOXIDE,CO2 30 mmol/L (21-32); CHLORIDE,CL 101 mmol/L (100-108); CREATININE 0.5 mg/dL (0.6-1.0); EST CRCL DRUG DOSING (CG) 150.63 mL/min; ESTIMATED GFR 127 mL/min (>60); GLUCOSE RANDOM 120 mg/dL (74-106); MAGNESIUM 1.9 mg/dL (1.8-2.4); PHOSPHORUS 3.9 mg/dL (2.5-4.9); POTASSIUM,K 3.7 mmol/L (3.6-5.2); PROTEIN TOTAL,TP 5.6 g/dL (6.4-8.2); SODIUM,NA 136 mmol/L (140-148)
[2023-04-27 05:33] LABS: ANION GAP 8.7 mmol/L (5.0-14.0)
[2023-04-27] MEDS: fentaNYL/Normal Saline 600 MCG/30 ML PCA Vial IV SCH ×3 (06:35→20:45)
[2023-04-27] MEDS: Acetaminophen 500 MG Tab PO SCH ×3 (06:39→21:39)
[2023-04-27] MEDS: Heparin Sodium 5,000 Units/ML Vial SUBCUT SCH ×2 (06:39→17:50)
[2023-04-27] MEDS: Celecoxib 200 MG Cap PO SCH ×2 (10:08→21:37)
[2023-04-27] MEDS: Pantoprazole 40 MG Vial IV SCH (10:39)
[2023-04-27] MEDS: Docusate Sodium 100 MG Cap PO SCH ×2 (13:21→21:42)
[2023-04-27] MEDS: Bisacodyl 5 MG Tab PO SCH ×2 (13:21→21:38)
[2023-04-27] MEDS: buPROPion 150 MG Tab.ER PO SCH (21:39)
[2023-04-27] MEDS: Escitalopram 10 MG Tab PO SCH (21:39)
[2023-04-27] MEDS: LORazepam 2 MG/ML SDV IVPUSH PRN (22:49)
[2023-04-28] MEDS: diphenhydrAMINE 50 MG/ML SDV IVPUSH PRN ×2 (00:06→04:51)
[2023-04-28] MEDS: Meropenem 500 MG in Sodium Chloride 0.9% 50 ML IV SCH ×4 (02:32→20:33)
[2023-04-28] MEDS: Ciprofloxacin in D5W 400 MG in Premix Bag 1 BAG IV SCH ×4 (03:16→15:04)
[2023-04-28] MEDS: Heparin Sodium 5,000 Units/ML Vial SUBCUT SCH ×2 (05:01→16:59)
[2023-04-28] MEDS: Acetaminophen 500 MG Tab PO SCH ×3 (05:02→20:31)
[2023-04-28] MEDS: fentaNYL/Normal Saline 600 MCG/30 ML PCA Vial IV SCH ×3 (05:27→22:22)
[2023-04-28] MEDS: 1: AA 5%/Calcium/D15W/Lytes 1,000 ML with MVI, Adult with Vitamin K 10 ML, Zinc/Copper/M IV SCH ×6 (07:01→16:59)
[2023-04-28] MEDS ORDERED: Propofol 200 MG/20 ML SDV ONE ×2 (07:18→07:48)
[2023-04-28] MEDS ORDERED: fentaNYL 100 MCG/2 ML SDV ONE (07:19)
[2023-04-28] MEDS ORDERED: Midazolam 1 MG/ML 2 ML SDV ONE (07:19)
[2023-04-28] MEDS ORDERED: Scopolamine 1.5 MG Transdermal Patch ONE (07:44)
[2023-04-28] MEDS ORDERED: Ondansetron 4 MG/2 ML SDV ONE (07:44)
[2023-04-28] MEDS ORDERED: droPERidol 5 MG/2 ML SDV ONE (07:44)
[2023-04-28] MEDS ORDERED: Dexamethasone 4 MG/ML SDV ONE (07:52)
[2023-04-28] MEDS: Dextrose 5%-Lactated Ringers 1,000 ML IV SCH (08:48)
[2023-04-28] MEDS: Celecoxib 200 MG Cap PO SCH ×2 (08:49→20:31)
[2023-04-28] MEDS: Bisacodyl 5 MG Tab PO SCH ×2 (08:49→20:32)
[2023-04-28] MEDS: Docusate Sodium 100 MG Cap PO SCH ×2 (08:49→20:32)
[2023-04-28] MEDS: Metoclopramide 10 MG/2 ML SDV IVPUSH SCH ×3 (09:46→21:54)
[2023-04-28] MEDS: Pantoprazole 40 MG Vial IV SCH (09:46)
[2023-04-28] MEDS: Escitalopram 10 MG Tab PO SCH (20:32)
[2023-04-28] MEDS: buPROPion 150 MG Tab.ER PO SCH (20:32)
[2023-04-28] MEDS: LORazepam 2 MG/ML SDV IVPUSH PRN (22:03)
[2023-04-29] MEDS: Ondansetron 4 MG/2 ML SDV IV PRN ×2 (00:59→16:46)
[2023-04-29] MEDS: Meropenem 500 MG in Sodium Chloride 0.9% 50 ML IV SCH ×4 (01:07→20:16)
[2023-04-29] MEDS: Acetaminophen 500 MG Tab PO SCH ×4 (01:11→20:12)
[2023-04-29] MEDS: diphenhydrAMINE 50 MG/ML SDV IVPUSH PRN ×3 (02:46→21:23)
[2023-04-29] MEDS: Ciprofloxacin in D5W 400 MG in Premix Bag 1 BAG IV SCH ×4 (02:50→15:02)
[2023-04-29] MEDS: 1: AA 5%/Calcium/D15W/Lytes 1,000 ML with MVI, Adult with Vitamin K 10 ML, Zinc/Copper/M IV SCH ×9 (02:54→23:43)
[2023-04-29] MEDS: Metoclopramide 10 MG/2 ML SDV IVPUSH SCH ×4 (03:00→21:07)
[2023-04-29 04:46] LABS: BASOPHILS PERCENT AUTO 0.2 % (0.1-1.3); EOSINOPHILS ABSOLUTE AUTO 0.17 K/uL (0.00-0.40); EOSINOPHILS PERCENT AUTO 1.8 % (0.0-5.4); HEMOGLOBIN 11.5 g/dL (11.2-15.5); IMMATURE GRAN ABSOLUTE AUTO 0.07 K/uL (0.00-0.23); IMMATURE GRAN PERCENT AUTO 0.8 % (0.0-0.7); LYMPHOCYTES ABSOLUTE AUTO 2.22 K/uL (0.8-3.3); MEAN CORPUSCULAR HEMOGLOBIN 27.8 pg (31.6-35.5); MEAN CORPUSCULAR HGB CONC 32.9 g/dL (31.6-35.5); MEAN CORPUSCULAR VOLUME 84.5 fL (81.4-99.0); MONOCYTES ABSOLUTE AUTO 0.95 K/uL (0.20-0.90); MONOCYTES PERCENT AUTO 10.3 % (3.3-12.6); NEUTROPHILS ABSOLUTE AUTO 5.83 K/uL (1.0-7.6); NEUTROPHILS PERCENT AUTO 62.9 % (40.0-78.1); PLATELET COUNT,PLT 345 K/uL (130-375); RED BLOOD CELL COUNT 4.14 M/uL (3.77-5.24); WHITE BLOOD CELL COUNT,WBC 9.3 K/uL (3.2-11.0)
[2023-04-29 04:47] LABS: BASOPHILS ABSOLUTE AUTO 0.02 K/uL (0.00-0.10)
[2023-04-29 05:04] LABS: A/G RATIO 0.7 (1.2-2.2); ALANINE AMINOTRANSFERASE,ALT 89 U/L (12-78); ALBUMIN 2.9 g/dL (3.4-5.0); ALKALINE PHOSPHATASE 158 U/L (46-116); ASPARTATE AMNIOTRANSFERASE,AST 48 U/L (15-37); BILIRUBIN TOTAL 0.5 mg/dL (0.2-1.0); BLOOD UREA NITROGEN,BUN 11 mg/dL (7-18); CALCIUM 8.9 mg/dL (8.5-10.1); CARBON DIOXIDE,CO2 27 mmol/L (21-32); CHLORIDE,CL 102 mmol/L (100-108); CREATININE 0.5 mg/dL (0.6-1.0); EST CRCL DRUG DOSING (CG) 150.63 mL/min; ESTIMATED GFR 127 mL/min (>60); GLUCOSE RANDOM 102 mg/dL (74-106); MAGNESIUM 2.2 mg/dL (1.8-2.4); PHOSPHORUS 4.1 mg/dL (2.5-4.9); POTASSIUM,K 4.3 mmol/L (3.6-5.2); PROTEIN TOTAL,TP 7.2 g/dL (6.4-8.2); SODIUM,NA 137 mmol/L (140-148)
[2023-04-29 05:09] LABS: ANION GAP 12.3 mmol/L (5.0-14.0)
[2023-04-29] MEDS: Heparin Sodium 5,000 Units/ML Vial SUBCUT SCH ×2 (05:37→17:09)
[2023-04-29] MEDS: fentaNYL/Normal Saline 600 MCG/30 ML PCA Vial IV SCH ×3 (07:20→19:13)
[2023-04-29] MEDS: Docusate Sodium 100 MG Cap PO SCH ×2 (09:21→20:12)
[2023-04-29] MEDS: Bisacodyl 5 MG Tab PO SCH ×2 (09:21→20:12)
[2023-04-29] MEDS: Cyclobenzaprine 10 MG Tab PO PRN ×2 (09:30→21:00)
[2023-04-29] MEDS: Pantoprazole 40 MG Vial IV SCH (09:30)
[2023-04-29] MEDS: Celecoxib 200 MG Cap PO SCH ×2 (09:31→20:13)
[2023-04-29] MEDS: LORazepam 2 MG/ML SDV IVPUSH PRN (23:41)
[2023-04-30] MEDS: Meropenem 500 MG in Sodium Chloride 0.9% 50 ML IV SCH ×4 (01:57→19:12)
[2023-04-30] MEDS: Ciprofloxacin in D5W 400 MG in Premix Bag 1 BAG IV SCH ×4 (02:41→14:52)
[2023-04-30] MEDS: fentaNYL/Normal Saline 600 MCG/30 ML PCA Vial IV SCH (02:43)
[2023-04-30] MEDS: Acetaminophen 500 MG Tab PO SCH ×3 (02:48→18:08)
[2023-04-30] MEDS: Metoclopramide 10 MG/2 ML SDV IVPUSH SCH ×4 (05:00→21:20)
[2023-04-30] MEDS: Heparin Sodium 5,000 Units/ML Vial SUBCUT SCH ×2 (05:05→17:49)
[2023-04-30] MEDS ORDERED: Central Total Parenteral Nutrition Bag SCH (08:00)
[2023-04-30] MEDS: oxyCODONE 5 MG Tab PO PRN ×3 (08:30→17:49)
[2023-04-30] MEDS: buPROPion 150 MG Tab.ER PO SCH (08:32)
[2023-04-30] MEDS: Dextrose 5%-Lactated Ringers 1,000 ML IV SCH (08:37)
[2023-04-30] MEDS: Escitalopram 10 MG Tab PO SCH (08:39)
[2023-04-30] MEDS: Cyclobenzaprine 10 MG Tab PO PRN (08:53)
[2023-04-30] MEDS: Celecoxib 200 MG Cap PO SCH ×2 (09:51→22:03)
[2023-04-30] MEDS: 1: AA 5%/Calcium/D15W/Lytes 1,000 ML with MVI, Adult with Vitamin K 10 ML, Zinc/Copper/M IV SCH ×6 (09:51→22:31)
[2023-04-30] MEDS: Bisacodyl 5 MG Tab PO SCH ×2 (09:51→22:03)
[2023-04-30] MEDS: Docusate Sodium 100 MG Cap PO SCH ×2 (09:51→22:03)
[2023-04-30] MEDS: hydrOXYzine HCl 50 MG/ML SDV IM PRN ×2 (10:55→22:40)
[2023-04-30] MEDS: SCOPOLAMINE PATCH CHECK TOP SCH (11:43)
[2023-04-30] MEDS: Pantoprazole 40 MG Vial IV SCH (12:02)
[2023-04-30] MEDS: LORazepam 2 MG/ML SDV IVPUSH PRN (21:20)
[2023-05-01] MEDS: Meropenem 500 MG in Sodium Chloride 0.9% 50 ML IV SCH ×4 (02:53→19:18)
[2023-05-01] MEDS: Acetaminophen 500 MG Tab PO SCH ×3 (02:55→17:48)
[2023-05-01] MEDS: oxyCODONE 5 MG Tab PO PRN ×3 (02:58→23:27)
[2023-05-01] MEDS: Ciprofloxacin in D5W 400 MG in Premix Bag 1 BAG IV SCH ×4 (03:29→14:34)
[2023-05-01] MEDS: Metoclopramide 10 MG/2 ML SDV IVPUSH SCH ×4 (04:04→21:25)
[2023-05-01] MEDS: Heparin Sodium 5,000 Units/ML Vial SUBCUT SCH ×2 (05:01→17:48)
[2023-05-01 05:11] LABS: HEMATOCRIT 31.7 % (34.3-46.0); HEMOGLOBIN 10.4 g/dL (11.2-15.5); MEAN CORPUSCULAR HGB CONC 32.8 g/dL (31.6-35.5); MEAN CORPUSCULAR VOLUME 85.4 fL (81.4-99.0); RED BLOOD CELL COUNT 3.71 M/uL (3.77-5.24); WHITE BLOOD CELL COUNT,WBC 6.8 K/uL (3.2-11.0)
[2023-05-01 05:34] LABS: A/G RATIO 0.7 (1.2-2.2); ALANINE AMINOTRANSFERASE,ALT 103 U/L (12-78); ALBUMIN 2.6 g/dL (3.4-5.0); ALKALINE PHOSPHATASE 172 U/L (46-116); ASPARTATE AMNIOTRANSFERASE,AST 55 U/L (15-37); BILIRUBIN TOTAL 0.5 mg/dL (0.2-1.0); BLOOD UREA NITROGEN,BUN 11 mg/dL (7-18); CALCIUM 8.6 mg/dL (8.5-10.1); CARBON DIOXIDE,CO2 29 mmol/L (21-32); CHLORIDE,CL 102 mmol/L (100-108); CREATININE 0.5 mg/dL (0.6-1.0); EST CRCL DRUG DOSING (CG) 150.63 mL/min; ESTIMATED GFR 127 mL/min (>60); GLUCOSE RANDOM 108 mg/dL (74-106); MAGNESIUM 2.2 mg/dL (1.8-2.4); PHOSPHORUS 3.9 mg/dL (2.5-4.9); PROTEIN TOTAL,TP 6.5 g/dL (6.4-8.2); SODIUM,NA 138 mmol/L (140-148)
[2023-05-01] MEDS ORDERED: Scopolamine 1.5 MG Transdermal Patch TOP SCH (08:00)
[2023-05-01] MEDS: Cyclobenzaprine 10 MG Tab PO PRN ×2 (08:07→17:47)
[2023-05-01] MEDS: Bisacodyl 5 MG Tab PO SCH ×2 (08:11→20:14)
[2023-05-01] MEDS: Docusate Sodium 100 MG Cap PO SCH ×2 (08:11→20:14)
[2023-05-01] MEDS: Celecoxib 200 MG Cap PO SCH ×2 (08:11→20:14)
[2023-05-01] MEDS ORDERED: Central Total Parenteral Nutrition Bag SCH (08:15)
[2023-05-01] MEDS: SCOPOLAMINE PATCH CHECK TOP SCH (08:38)
[2023-05-01 08:56] LABS: AMYLASE,BODY FLUID 59 U/L
[2023-05-01 09:02] LABS: AMYLASE BODY FLUID TYPE JP DRAINAGE #1
[2023-05-01] MEDS: buPROPion 150 MG Tab.ER PO SCH (09:25)
[2023-05-01] MEDS: Escitalopram 10 MG Tab PO SCH ×2 (09:25→14:37)
[2023-05-01] MEDS: Pantoprazole 40 MG Vial IV SCH (09:28)
[2023-05-01] MEDS ORDERED: Iopamidol 510 MG/ML 50 ML SDV PO ONE (09:36)
[2023-05-01] MEDS: 1: AA 5%/Calcium/D15W/Lytes 1,000 ML with MVI, Adult with Vitamin K 10 ML, Zinc/Copper/M IV SCH ×6 (11:02→23:09)
[2023-05-01] MEDS: diphenhydrAMINE 50 MG/ML SDV IVPUSH PRN (21:27)
[2023-05-01] MEDS: LORazepam 2 MG/ML SDV IVPUSH PRN (23:26)
[2023-05-02] MEDS: hydrOXYzine HCl 50 MG/ML SDV IM PRN (01:17)
[2023-05-02] MEDS: Meropenem 500 MG in Sodium Chloride 0.9% 50 ML IV SCH ×4 (02:11→20:41)
[2023-05-02] MEDS: Acetaminophen 500 MG Tab PO SCH ×3 (02:14→17:11)
[2023-05-02] MEDS: Ciprofloxacin in D5W 400 MG in Premix Bag 1 BAG IV SCH ×4 (03:36→15:14)
[2023-05-02] MEDS: diphenhydrAMINE 50 MG/ML SDV IVPUSH PRN ×2 (03:51→16:37)
[2023-05-02] MEDS: Metoclopramide 10 MG/2 ML SDV IVPUSH SCH ×4 (03:52→22:20)
[2023-05-02 04:38] LABS: HEMATOCRIT 32.2 % (34.3-46.0); HEMOGLOBIN 10.6 g/dL (11.2-15.5); MEAN CORPUSCULAR HEMOGLOBIN 28.1 pg (31.6-35.5); MEAN CORPUSCULAR HGB CONC 32.9 g/dL (31.6-35.5); MEAN CORPUSCULAR VOLUME 85.4 fL (81.4-99.0); RED BLOOD CELL COUNT 3.77 M/uL (3.77-5.24); WHITE BLOOD CELL COUNT,WBC 8.5 K/uL (3.2-11.0)
[2023-05-02 05:00] LABS: A/G RATIO 0.6 (1.2-2.2); ALANINE AMINOTRANSFERASE,ALT 130 U/L (12-78); ALBUMIN 2.6 g/dL (3.4-5.0); ALKALINE PHOSPHATASE 198 U/L (46-116); ASPARTATE AMNIOTRANSFERASE,AST 63 U/L (15-37); BILIRUBIN TOTAL 0.5 mg/dL (0.2-1.0); BLOOD UREA NITROGEN,BUN 10 mg/dL (7-18); CALCIUM 8.8 mg/dL (8.5-10.1); CARBON DIOXIDE,CO2 28 mmol/L (21-32); CHLORIDE,CL 102 mmol/L (100-108); CREATININE 0.5 mg/dL (0.6-1.0); ESTIMATED GFR 127 mL/min (>60); GLUCOSE RANDOM 107 mg/dL (74-106); MAGNESIUM 2.2 mg/dL (1.8-2.4); PHOSPHORUS 3.9 mg/dL (2.5-4.9); POTASSIUM,K 3.8 mmol/L (3.6-5.2); PROTEIN TOTAL,TP 6.7 g/dL (6.4-8.2); SODIUM,NA 137 mmol/L (140-148)
[2023-05-02] MEDS: oxyCODONE 5 MG Tab PO PRN ×3 (05:15→18:29)
[2023-05-02] MEDS: Heparin Sodium 5,000 Units/ML Vial SUBCUT SCH ×2 (05:16→17:05)
[2023-05-02 05:32] LABS: ANION GAP 10.8 mmol/L (5.0-14.0); EST CRCL DRUG DOSING (CG) 149.81 mL/min
[2023-05-02] MEDS: LORazepam 2 MG/ML SDV IVPUSH PRN ×2 (05:32→22:20)
[2023-05-02] MEDS ORDERED: Central Total Parenteral Nutrition Bag SCH (08:15)
[2023-05-02] MEDS: Bisacodyl 5 MG Tab PO SCH ×2 (10:00→20:42)
[2023-05-02] MEDS: Celecoxib 200 MG Cap PO SCH ×2 (10:03→20:42)
[2023-05-02] MEDS: SCOPOLAMINE PATCH CHECK TOP SCH (10:03)
[2023-05-02] MEDS: Docusate Sodium 100 MG Cap PO SCH ×2 (10:03→20:42)
[2023-05-02] MEDS: Pantoprazole 40 MG Vial IV SCH (10:04)
[2023-05-02] MEDS: Escitalopram 10 MG Tab PO SCH (10:19)
[2023-05-02] MEDS: 1: AA 5%/Calcium/D15W/Lytes 1,000 ML with MVI, Adult with Vitamin K 10 ML, Zinc/Copper/M IV SCH ×3 (11:17)
[2023-05-02] MEDS: Dextrose 5%-Lactated Ringers 1,000 ML IV SCH (15:14)
[2023-05-03] MEDS: 1: AA 5%/Calcium/D15W/Lytes 1,000 ML with MVI, Adult with Vitamin K 10 ML, Zinc/Copper/M IV SCH ×3 (00:03)
[2023-05-03] MEDS: oxyCODONE 5 MG Tab PO PRN ×3 (00:17→18:34)
[2023-05-03] MEDS: Meropenem 500 MG in Sodium Chloride 0.9% 50 ML IV SCH ×2 (01:51→08:09)
[2023-05-03] MEDS: Acetaminophen 500 MG Tab PO SCH ×3 (01:51→17:02)
[2023-05-03] MEDS: Ciprofloxacin in D5W 400 MG in Premix Bag 1 BAG IV SCH ×2 (02:59)
[2023-05-03] MEDS: Metoclopramide 10 MG/2 ML SDV IVPUSH SCH ×4 (03:00→21:30)
[2023-05-03 04:53] LABS: HEMATOCRIT 31.4 % (34.3-46.0); HEMOGLOBIN 10.3 g/dL (11.2-15.5); MEAN CORPUSCULAR HEMOGLOBIN 27.8 pg (31.6-35.5); MEAN CORPUSCULAR HGB CONC 32.8 g/dL (31.6-35.5); MEAN CORPUSCULAR VOLUME 84.9 fL (81.4-99.0); RED BLOOD CELL COUNT 3.7 M/uL (3.77-5.24); WHITE BLOOD CELL COUNT,WBC 8.5 K/uL (3.2-11.0)
[2023-05-03 05:09] LABS: A/G RATIO 0.6 (1.2-2.2); ALANINE AMINOTRANSFERASE,ALT 150 U/L (12-78); ALBUMIN 2.5 g/dL (3.4-5.0); ALKALINE PHOSPHATASE 200 U/L (46-116); ASPARTATE AMNIOTRANSFERASE,AST 67 U/L (15-37); BILIRUBIN TOTAL 0.5 mg/dL (0.2-1.0); BLOOD UREA NITROGEN,BUN 13 mg/dL (7-18); CALCIUM 8.5 mg/dL (8.5-10.1); CARBON DIOXIDE,CO2 28 mmol/L (21-32); CHLORIDE,CL 102 mmol/L (100-108); CREATININE 0.5 mg/dL (0.6-1.0); EST CRCL DRUG DOSING (CG) 149.81 mL/min; ESTIMATED GFR 127 mL/min (>60); GLUCOSE RANDOM 96 mg/dL (74-106); MAGNESIUM 2.1 mg/dL (1.8-2.4); PHOSPHORUS 4.1 mg/dL (2.5-4.9); POTASSIUM,K 3.9 mmol/L (3.6-5.2); PROTEIN TOTAL,TP 6.6 g/dL (6.4-8.2); SODIUM,NA 137 mmol/L (140-148)
[2023-05-03 05:14] LABS: ANION GAP 10.9 mmol/L (5.0-14.0)
[2023-05-03] MEDS: Heparin Sodium 5,000 Units/ML Vial SUBCUT SCH ×2 (05:42→17:04)
[2023-05-03] MEDS ORDERED: Scopolamine 1.5 MG Transdermal Patch TOP SCH (07:32)
[2023-05-03] MEDS: Celecoxib 200 MG Cap PO SCH ×2 (08:04→20:05)
[2023-05-03] MEDS: Bisacodyl 5 MG Tab PO SCH ×2 (08:05→20:05)
[2023-05-03] MEDS: Docusate Sodium 100 MG Cap PO SCH ×2 (08:05→20:05)
[2023-05-03] MEDS: Escitalopram 10 MG Tab PO SCH (08:06)
[2023-05-03] MEDS: SCOPOLAMINE PATCH CHECK TOP SCH (08:08)
[2023-05-03] MEDS ORDERED: Central Total Parenteral Nutrition Bag SCH (08:15)
[2023-05-03] MEDS: hydrOXYzine HCl 50 MG/ML SDV IM PRN (09:12)
[2023-05-03] MEDS: Pantoprazole 40 MG Vial IV SCH (09:21)
[2023-05-03] MEDS ORDERED: 1: AA 5%/Calcium/D15W/Lytes 1,000 ML with MVI, Adult with Vitamin K 10 ML, Zinc/Copper/M IV SCH ×3 (12:30)
[2023-05-03] MEDS: LORazepam 2 MG/ML SDV IVPUSH PRN ×2 (14:53→21:30)
[2023-05-04] MEDS: Acetaminophen 500 MG Tab PO SCH ×3 (01:01→17:02)
[2023-05-04] MEDS: oxyCODONE 5 MG Tab PO PRN ×2 (01:02→05:14)
[2023-05-04] MEDS: diphenhydrAMINE 50 MG/ML SDV IVPUSH PRN (01:59)
[2023-05-04] MEDS: Metoclopramide 10 MG/2 ML SDV IVPUSH SCH ×4 (03:54→21:18)
[2023-05-04 04:26] LABS: HEMATOCRIT 32.3 % (34.3-46.0); HEMOGLOBIN 10.7 g/dL (11.2-15.5); MEAN CORPUSCULAR HEMOGLOBIN 28.1 pg (31.6-35.5); MEAN CORPUSCULAR HGB CONC 33.1 g/dL (31.6-35.5); MEAN CORPUSCULAR VOLUME 84.8 fL (81.4-99.0); RED BLOOD CELL COUNT 3.81 M/uL (3.77-5.24); WHITE BLOOD CELL COUNT,WBC 8.6 K/uL (3.2-11.0)
[2023-05-04 04:54] LABS: A/G RATIO 0.6 (1.2-2.2); ALANINE AMINOTRANSFERASE,ALT 176 U/L (12-78); ALBUMIN 2.7 g/dL (3.4-5.0); ALKALINE PHOSPHATASE 209 U/L (46-116); ASPARTATE AMNIOTRANSFERASE,AST 72 U/L (15-37); BILIRUBIN TOTAL 0.5 mg/dL (0.2-1.0); BLOOD UREA NITROGEN,BUN 13 mg/dL (7-18); CALCIUM 8.8 mg/dL (8.5-10.1); CARBON DIOXIDE,CO2 29 mmol/L (21-32); CHLORIDE,CL 101 mmol/L (100-108); CREATININE 0.6 mg/dL (0.6-1.0); EST CRCL DRUG DOSING (CG) 124.85 mL/min; ESTIMATED GFR 121 mL/min (>60); GLUCOSE RANDOM 94 mg/dL (74-106); MAGNESIUM 2.3 mg/dL (1.8-2.4); PHOSPHORUS 4.7 mg/dL (2.5-4.9); POTASSIUM,K 3.8 mmol/L (3.6-5.2); SODIUM,NA 138 mmol/L (140-148)
[2023-05-04 04:57] LABS: ANION GAP 11.8 mmol/L (5.0-14.0)
[2023-05-04] MEDS: Heparin Sodium 5,000 Units/ML Vial SUBCUT SCH ×2 (05:14→17:01)
[2023-05-04 06:03] LABS: AMYLASE,BODY FLUID 7624 U/L
[2023-05-04] MEDS: Cyclobenzaprine 10 MG Tab PO PRN (07:33)
[2023-05-04] MEDS: Dextrose 5%-Lactated Ringers 1,000 ML IV SCH (07:35)
[2023-05-04] MEDS: Ondansetron 4 MG/2 ML SDV IV PRN (07:44)
[2023-05-04] MEDS: LORazepam 2 MG/ML SDV IVPUSH PRN ×2 (09:09→22:19)
[2023-05-04] MEDS: Docusate Sodium 100 MG Cap PO SCH ×2 (09:36→21:18)
[2023-05-04] MEDS: Escitalopram 10 MG Tab PO SCH (09:36)
[2023-05-04] MEDS: Bisacodyl 5 MG Tab PO SCH ×2 (09:36→21:18)
[2023-05-04] MEDS: Celecoxib 200 MG Cap PO SCH (09:36)
[2023-05-04] MEDS: Scopolamine 1.5 MG Transdermal Patch TOP SCH (10:03)
[2023-05-04] MEDS: Pantoprazole 40 MG Vial IV SCH (10:04)
[2023-05-04] MEDS: SCOPOLAMINE PATCH CHECK TOP SCH (10:15)
[2023-05-04] MEDS ORDERED: HYDROmorphone 1 MG/ML Syringe IVPUSH ONE (12:05)
[2023-05-04] MEDS ORDERED: Ondansetron 4 MG Tab.DIS PO PRN (12:38)
[2023-05-04] MEDS ORDERED: [UNRECOGNIZED DRUG - OTHER] IV SCH ×3 (13:30)
[2023-05-04] MEDS ORDERED: CALCIUM IV SCH ×3 (13:30)
[2023-05-04] MEDS ORDERED: LYTES IV SCH ×3 (13:30)
[2023-05-04] MEDS ORDERED: MVI IV SCH ×3 (13:30)
[2023-05-04] MEDS ORDERED: VITAMIN K IV SCH ×3 (13:30)
[2023-05-04] MEDS: Cyclobenzaprine 10 MG Tab PO SCH ×2 (14:42→23:03)
[2023-05-04] MEDS: Nystatin Susp 100,000 Unit/ML 5 ML UD Cup PO SCH ×3 (14:49→21:17)
[2023-05-04] MEDS ORDERED: Fluconazole/Normal Saline 200 MG in Premix Bag 1 BAG IV SCH (16:00)
[2023-05-04] MEDS: HYDROmorphone 0.5 MG/0.5 ML Syringe IVPUSH PRN ×2 (18:14→21:09)
[2023-05-05] MEDS: Acetaminophen 500 MG Tab PO SCH ×3 (01:52→17:07)
[2023-05-05] MEDS: HYDROmorphone 0.5 MG/0.5 ML Syringe IVPUSH PRN ×2 (01:59→05:30)
[2023-05-05] MEDS: LORazepam 2 MG/ML SDV IVPUSH PRN (04:18)
[2023-05-05] MEDS: Metoclopramide 10 MG/2 ML SDV IVPUSH SCH ×4 (04:23→21:10)
[2023-05-05] MEDS: Cyclobenzaprine 10 MG Tab PO SCH ×4 (05:13→23:11)
[2023-05-05] MEDS: Heparin Sodium 5,000 Units/ML Vial SUBCUT SCH (05:30)
[2023-05-05] MEDS: Nystatin Susp 100,000 Unit/ML 5 ML UD Cup PO SCH ×4 (05:30→21:10)
[2023-05-05] MEDS ORDERED: fentaNYL 100 MCG/2 ML SDV ONE ×2 (07:08→07:43)
[2023-05-05] MEDS ORDERED: Propofol 200 MG/20 ML SDV ONE (07:08)
[2023-05-05] MEDS ORDERED: Midazolam 1 MG/ML 2 ML SDV ONE (07:08)
[2023-05-05] MEDS: HYDROmorphone 1 MG/ML Syringe IV PRN ×4 (09:41→21:10)
[2023-05-05] MEDS: Escitalopram 10 MG Tab PO SCH (10:24)
[2023-05-05] MEDS: SCOPOLAMINE PATCH CHECK TOP SCH (10:25)
[2023-05-05] MEDS: Pantoprazole 40 MG Vial IV SCH (10:25)
[2023-05-05] MEDS: Bisacodyl 5 MG Tab PO SCH ×2 (12:07→21:26)
[2023-05-05] MEDS: Docusate Sodium 100 MG Cap PO SCH ×2 (12:47→21:26)
[2023-05-05] MEDS: VITAMIN K IV SCH ×3 (15:01)
[2023-05-05] MEDS: CALCIUM IV SCH ×3 (15:01)
[2023-05-05] MEDS: MVI IV SCH ×3 (15:01)
[2023-05-05] MEDS: LYTES IV SCH ×3 (15:01)
[2023-05-05] MEDS: [UNRECOGNIZED DRUG - OTHER] IV SCH ×3 (15:01)
[2023-05-05] MEDS: Dextrose 5%-Lactated Ringers 1,000 ML IV SCH (15:13)
[2023-05-05] MEDS: diphenhydrAMINE 50 MG/ML SDV IVPUSH PRN (21:27)
[2023-05-06] MEDS: HYDROmorphone 1 MG/ML Syringe IV PRN ×7 (01:00→23:34)
[2023-05-06] MEDS: Acetaminophen 500 MG Tab PO SCH ×3 (01:27→17:34)
[2023-05-06] MEDS: LORazepam 2 MG/ML SDV IVPUSH PRN ×2 (03:23→20:29)
[2023-05-06] MEDS: Metoclopramide 10 MG/2 ML SDV IVPUSH SCH ×3 (03:35→16:09)
[2023-05-06 04:48] LABS: BASOPHILS PERCENT AUTO 0.3 % (0.1-1.3); EOSINOPHILS ABSOLUTE AUTO 0.33 K/uL (0.00-0.40); EOSINOPHILS PERCENT AUTO 5.2 % (0.0-5.4); HEMOGLOBIN 9.5 g/dL (11.2-15.5); IMMATURE GRAN ABSOLUTE AUTO 0.04 K/uL (0.00-0.23); IMMATURE GRAN PERCENT AUTO 0.6 % (0.0-0.7); LYMPHOCYTES ABSOLUTE AUTO 1.82 K/uL (0.8-3.3); LYMPHOCYTES PERCENT AUTO 28.9 % (11.4-47.7); MEAN CORPUSCULAR HEMOGLOBIN 27.9 pg (31.6-35.5); MEAN CORPUSCULAR HGB CONC 32.8 g/dL (31.6-35.5); MEAN CORPUSCULAR VOLUME 85.3 fL (81.4-99.0); MONOCYTES ABSOLUTE AUTO 0.36 K/uL (0.20-0.90); MONOCYTES PERCENT AUTO 5.7 % (3.3-12.6); NEUTROPHILS ABSOLUTE AUTO 3.73 K/uL (1.0-7.6); NEUTROPHILS PERCENT AUTO 59.3 % (40.0-78.1); PLATELET COUNT,PLT 263 K/uL (130-375); WHITE BLOOD CELL COUNT,WBC 6.3 K/uL (3.2-11.0)
[2023-05-06 04:53] LABS: BASOPHILS ABSOLUTE AUTO 0.02 K/uL (0.00-0.10)
[2023-05-06] MEDS: Cyclobenzaprine 10 MG Tab PO SCH ×3 (05:00→22:19)
[2023-05-06] MEDS: Nystatin Susp 100,000 Unit/ML 5 ML UD Cup PO SCH ×4 (05:01→22:19)
[2023-05-06 05:07] LABS: A/G RATIO 0.6 (1.2-2.2); ALANINE AMINOTRANSFERASE,ALT 168 U/L (12-78); ALBUMIN 2.5 g/dL (3.4-5.0); ALKALINE PHOSPHATASE 186 U/L (46-116); ASPARTATE AMNIOTRANSFERASE,AST 64 U/L (15-37); BILIRUBIN TOTAL 0.7 mg/dL (0.2-1.0); BLOOD UREA NITROGEN,BUN 11 mg/dL (7-18); CALCIUM 8.6 mg/dL (8.5-10.1); CARBON DIOXIDE,CO2 29 mmol/L (21-32); CHLORIDE,CL 101 mmol/L (100-108); CREATININE 0.6 mg/dL (0.6-1.0); EST CRCL DRUG DOSING (CG) 124.85 mL/min; ESTIMATED GFR 121 mL/min (>60); GLUCOSE RANDOM 99 mg/dL (74-106); MAGNESIUM 2.1 mg/dL (1.8-2.4); PHOSPHORUS 5.2 mg/dL (2.5-4.9); POTASSIUM,K 3.6 mmol/L (3.6-5.2); PROTEIN TOTAL,TP 6.5 g/dL (6.4-8.2); SODIUM,NA 138 mmol/L (140-148)
[2023-05-06 05:16] LABS: ANION GAP 11.6 mmol/L (5.0-14.0)
[2023-05-06] MEDS ORDERED: Lidocaine 4% 1 each Patch TOP PRN (08:26)
[2023-05-06] MEDS ORDERED: Central Total Parenteral Nutrition Bag SCH (08:30)
[2023-05-06] MEDS: Lidocaine 5% 700 MG Patch TRDERM PRN (09:15)
[2023-05-06] MEDS: diphenhydrAMINE 50 MG/ML SDV IVPUSH PRN ×2 (09:15→12:55)
[2023-05-06] MEDS ORDERED: Sodium Chloride 0.9% 50 ML IV SCH (09:45)
[2023-05-06] MEDS ORDERED: Sodium Chloride 0.9% 10 ML Syringe FLUSH ONE (09:45)
[2023-05-06] MEDS ORDERED: Iopamidol 612 MG/ML 100 ML Bottle IV SCH (09:45)
[2023-05-06] MEDS: Bisacodyl 5 MG Tab PO SCH ×2 (11:14→20:48)
[2023-05-06] MEDS: Pantoprazole 40 MG Vial IV SCH (11:14)
[2023-05-06] MEDS: Docusate Sodium 100 MG Cap PO SCH ×2 (11:14→20:48)
[2023-05-06] MEDS: Escitalopram 10 MG Tab PO SCH (11:15)
[2023-05-06] MEDS: SCOPOLAMINE PATCH CHECK TOP SCH (11:15)
[2023-05-06] MEDS: [UNRECOGNIZED DRUG - OTHER] IV SCH ×3 (16:06)
[2023-05-06] MEDS: VITAMIN K IV SCH ×3 (16:06)
[2023-05-06] MEDS: CALCIUM IV SCH ×3 (16:06)
[2023-05-06] MEDS: LYTES IV SCH ×3 (16:06)
[2023-05-06] MEDS: MVI IV SCH ×3 (16:06)
[2023-05-06] MEDS ORDERED: diphenhydrAMINE 25 MG Cap PO PRN (16:33)
[2023-05-06] MEDS ORDERED: Metoclopramide 10 MG Tab PO PRN (16:36)
[2023-05-06] MEDS: HYDROmorphone 2 MG Tab PO PRN (17:59)
[2023-05-06] MEDS ORDERED: diphenhydrAMINE 25 MG/10 ML Cup PO PRN (18:21)
[2023-05-07] MEDS: HYDROmorphone 1 MG/ML Syringe IV PRN ×4 (02:33→12:40)
[2023-05-07] MEDS: Acetaminophen 500 MG Tab PO SCH ×3 (02:36→17:44)
[2023-05-07 04:37] LABS: HEMATOCRIT 31.8 % (34.3-46.0); HEMOGLOBIN 10.5 g/dL (11.2-15.5); MEAN CORPUSCULAR HEMOGLOBIN 28.2 pg (31.6-35.5); MEAN CORPUSCULAR VOLUME 85.3 fL (81.4-99.0); RED BLOOD CELL COUNT 3.73 M/uL (3.77-5.24); WHITE BLOOD CELL COUNT,WBC 5.6 K/uL (3.2-11.0)
[2023-05-07 04:55] LABS: A/G RATIO 0.6 (1.2-2.2); ALANINE AMINOTRANSFERASE,ALT 173 U/L (12-78); ALBUMIN 2.6 g/dL (3.4-5.0); ALKALINE PHOSPHATASE 191 U/L (46-116); ASPARTATE AMNIOTRANSFERASE,AST 58 U/L (15-37); BILIRUBIN TOTAL 0.8 mg/dL (0.2-1.0); BLOOD UREA NITROGEN,BUN 9 mg/dL (7-18); CALCIUM 8.7 mg/dL (8.5-10.1); CARBON DIOXIDE,CO2 30 mmol/L (21-32); CHLORIDE,CL 100 mmol/L (100-108); CREATININE 0.6 mg/dL (0.6-1.0); EST CRCL DRUG DOSING (CG) 124.85 mL/min; ESTIMATED GFR 121 mL/min (>60); GLUCOSE RANDOM 85 mg/dL (74-106); PHOSPHORUS 4.6 mg/dL (2.5-4.9); POTASSIUM,K 3.7 mmol/L (3.6-5.2); PROTEIN TOTAL,TP 6.8 g/dL (6.4-8.2); SODIUM,NA 137 mmol/L (140-148)
[2023-05-07 04:57] LABS: ANION GAP 10.7 mmol/L (5.0-14.0)
[2023-05-07] MEDS: Cyclobenzaprine 10 MG Tab PO SCH ×4 (05:34→21:22)
[2023-05-07] MEDS: Nystatin Susp 100,000 Unit/ML 5 ML UD Cup PO SCH ×4 (05:34→21:22)
[2023-05-07] MEDS: Lidocaine 5% 700 MG Patch TRDERM PRN (05:39)
[2023-05-07] MEDS: LORazepam 0.5 MG Tab PO PRN ×2 (05:43→14:33)
[2023-05-07] MEDS ORDERED: Central Total Parenteral Nutrition Bag SCH (08:00)
[2023-05-07] MEDS ORDERED: fentaNYL 100 MCG/2 ML SDV ONE ×2 (08:31→09:46)
[2023-05-07] MEDS ORDERED: Midazolam 1 MG/ML 2 ML SDV ONE ×2 (08:31→09:46)
[2023-05-07] MEDS ORDERED: Propofol 200 MG/20 ML SDV ONE ×3 (08:31→10:07)
[2023-05-07] MEDS: Docusate Sodium 100 MG Cap PO SCH ×2 (09:11→20:01)
[2023-05-07] MEDS: Bisacodyl 5 MG Tab PO SCH ×2 (09:11→20:01)
[2023-05-07] MEDS: Escitalopram 10 MG Tab PO SCH (09:11)
[2023-05-07] MEDS ORDERED: Bupivacaine 0.5% 50 ML MDV ONE (10:09)
[2023-05-07] MEDS ORDERED: Lidocaine 1% with EPINEPHrine 1:100,000 50 ML MDV ONE (10:09)
[2023-05-07] MEDS: SCOPOLAMINE PATCH CHECK TOP SCH (11:28)
[2023-05-07] MEDS: Pantoprazole 40 MG Vial IV SCH (11:48)
[2023-05-07] MEDS ORDERED: hydrOXYzine HCl 25 MG Tab PO PRN (12:49)
[2023-05-07] MEDS: 1: AA 5%/Calcium/D15W/Lytes 1,000 ML with MVI, Adult with Vitamin K 10 ML, Zinc/Copper/M IV SCH ×3 (14:33)
[2023-05-07] MEDS: HYDROmorphone 2 MG Tab PO PRN ×2 (15:18→20:00)
[2023-05-07] MEDS: Scopolamine 1.5 MG Transdermal Patch TOP SCH (18:13)
[2023-05-07] MEDS: LORazepam 2 MG/ML SDV IVPUSH PRN (20:01)
[2023-05-07] MEDS: Sodium Chloride 0.9% 1,000 ML IV SCH (23:33)
[2023-05-08] MEDS: HYDROmorphone 2 MG Tab PO PRN (00:33)
[2023-05-08] MEDS: Acetaminophen 500 MG Tab PO SCH ×3 (02:30→17:07)
[2023-05-08] MEDS: HYDROmorphone 1 MG/ML Syringe IVPUSH PRN ×6 (04:39→21:49)
[2023-05-08 04:51] LABS: BASOPHILS PERCENT AUTO 0.2 % (0.1-1.3); EOSINOPHILS PERCENT AUTO 6.8 % (0.0-5.4); HEMATOCRIT 30.8 % (34.3-46.0); IMMATURE GRAN PERCENT AUTO 0.3 % (0.0-0.7); LYMPHOCYTES ABSOLUTE AUTO 1.73 K/uL (0.8-3.3); LYMPHOCYTES PERCENT AUTO 29.6 % (11.4-47.7); MEAN CORPUSCULAR HEMOGLOBIN 27.5 pg (31.6-35.5); MEAN CORPUSCULAR HGB CONC 32.5 g/dL (31.6-35.5); MEAN CORPUSCULAR VOLUME 84.8 fL (81.4-99.0); MONOCYTES ABSOLUTE AUTO 0.37 K/uL (0.20-0.90); MONOCYTES PERCENT AUTO 6.3 % (3.3-12.6); NEUTROPHILS ABSOLUTE AUTO 3.31 K/uL (1.0-7.6); NEUTROPHILS PERCENT AUTO 56.8 % (40.0-78.1); PLATELET COUNT,PLT 302 K/uL (130-375); RED BLOOD CELL COUNT 3.63 M/uL (3.77-5.24); WHITE BLOOD CELL COUNT,WBC 5.8 K/uL (3.2-11.0)
[2023-05-08 05:03] LABS: BASOPHILS ABSOLUTE AUTO 0.01 K/uL (0.00-0.10); IMMATURE GRAN ABSOLUTE AUTO 0.02 K/uL (0.00-0.23)
[2023-05-08 05:11] LABS: A/G RATIO 0.6 (1.2-2.2); ALANINE AMINOTRANSFERASE,ALT 155 U/L (12-78); ALBUMIN 2.6 g/dL (3.4-5.0); ALKALINE PHOSPHATASE 174 U/L (46-116); ASPARTATE AMNIOTRANSFERASE,AST 43 U/L (15-37); BILIRUBIN TOTAL 0.7 mg/dL (0.2-1.0); BLOOD UREA NITROGEN,BUN 9 mg/dL (7-18); CALCIUM 8.7 mg/dL (8.5-10.1); CARBON DIOXIDE,CO2 28 mmol/L (21-32); CHLORIDE,CL 102 mmol/L (100-108); CREATININE 0.5 mg/dL (0.6-1.0); EST CRCL DRUG DOSING (CG) 149.81 mL/min; ESTIMATED GFR 127 mL/min (>60); GLUCOSE RANDOM 100 mg/dL (74-106); MAGNESIUM 2.1 mg/dL (1.8-2.4); PHOSPHORUS 4.2 mg/dL (2.5-4.9); POTASSIUM,K 3.7 mmol/L (3.6-5.2); PROTEIN TOTAL,TP 6.8 g/dL (6.4-8.2); SODIUM,NA 138 mmol/L (140-148)
[2023-05-08 05:15] LABS: ANION GAP 11.7 mmol/L (5.0-14.0)
[2023-05-08 05:36] LABS: BODY FLUID TYPE JP DRAINAGE
[2023-05-08] MEDS: 1: AA 5%/Calcium/D15W/Lytes 1,000 ML with MVI, Adult with Vitamin K 10 ML, Zinc/Copper/M IV SCH ×6 (06:33→19:31)
[2023-05-08] MEDS: Nystatin Susp 100,000 Unit/ML 5 ML UD Cup PO SCH ×4 (06:45→21:16)
[2023-05-08] MEDS: Cyclobenzaprine 10 MG Tab PO SCH ×3 (06:45→21:16)
[2023-05-08 06:53] LABS: AMYLASE,BODY FLUID 51561 U/L
[2023-05-08 06:54] LABS: AMYLASE BODY FLUID TYPE OTHER
[2023-05-08] MEDS ORDERED: Central Total Parenteral Nutrition Bag SCH (08:00)
[2023-05-08] MEDS: Bisacodyl 5 MG Tab PO SCH ×2 (08:21→21:17)
[2023-05-08] MEDS: Docusate Sodium 100 MG Cap PO SCH ×2 (08:21→21:17)
[2023-05-08] MEDS: SCOPOLAMINE PATCH CHECK TOP SCH (08:22)
[2023-05-08] MEDS: Escitalopram 10 MG Tab PO SCH (09:28)
[2023-05-08] MEDS: Pantoprazole 40 MG Vial IV SCH (09:31)
[2023-05-08] MEDS: Sodium Chloride 0.9% 1,000 ML IV SCH ×2 (09:38→19:30)
[2023-05-08] MEDS: Lidocaine 5% 700 MG Patch TRDERM PRN (10:25)
[2023-05-08] MEDS: LORazepam 0.5 MG Tab PO PRN (21:14)
[2023-05-08] MEDS: LORazepam 2 MG/ML SDV IVPUSH PRN (22:29)
[2023-05-09] MEDS: Acetaminophen 500 MG Tab PO SCH ×3 (01:03→17:25)
[2023-05-09] MEDS: HYDROmorphone 1 MG/ML Syringe IVPUSH PRN ×4 (01:19→13:40)
[2023-05-09] MEDS: LORazepam 0.5 MG Tab PO PRN ×2 (03:16→22:06)
[2023-05-09] MEDS: Cyclobenzaprine 10 MG Tab PO SCH ×3 (05:03→21:43)
[2023-05-09] MEDS: Nystatin Susp 100,000 Unit/ML 5 ML UD Cup PO SCH ×4 (05:03→21:44)
[2023-05-09] MEDS: Sodium Chloride 0.9% 1,000 ML IV SCH ×2 (05:09→14:08)
[2023-05-09] MEDS ORDERED: Central Total Parenteral Nutrition Bag SCH (07:30)
[2023-05-09] MEDS: 1: AA 5%/Calcium/D15W/Lytes 1,000 ML with MVI, Adult with Vitamin K 10 ML, Zinc/Copper/M IV SCH ×6 (08:12→20:24)
[2023-05-09] MEDS: Docusate Sodium 100 MG Cap PO SCH ×2 (08:17→20:26)
[2023-05-09] MEDS: Bisacodyl 5 MG Tab PO SCH ×2 (08:18→20:26)
[2023-05-09] MEDS: SCOPOLAMINE PATCH CHECK TOP SCH (08:18)
[2023-05-09] MEDS: Escitalopram 10 MG Tab PO SCH (08:50)
[2023-05-09] MEDS ORDERED: fentaNYL 250 MCG/5 ML SDV ONE (09:01)
[2023-05-09] MEDS ORDERED: Neostigmine Methylsulfate 1 MG/ML 5 ML Syringe ONE (09:02)
[2023-05-09] MEDS ORDERED: Glycopyrrolate 0.2 MG/ML 5 ML MDV ONE (09:02)
[2023-05-09] MEDS ORDERED: Succinylcholine 200 MG/10 ML MDV ONE (09:02)
[2023-05-09] MEDS ORDERED: Dexamethasone 4 MG/ML SDV ONE (09:02)
[2023-05-09] MEDS ORDERED: Ondansetron 4 MG/2 ML SDV ONE (09:02)
[2023-05-09] MEDS ORDERED: Rocuronium 50 MG/5 ML Vial ONE (09:02)
[2023-05-09] MEDS ORDERED: Propofol 200 MG/20 ML SDV ONE (09:02)
[2023-05-09] MEDS: Pantoprazole 40 MG Vial IV SCH (10:20)
[2023-05-09] MEDS: Benzocaine/Cetylpyridinium/Menthol Lozenge MUCMEM PRN (13:40)
[2023-05-09] MEDS: HYDROmorphone 2 MG Tab PO PRN ×2 (16:35→20:25)
[2023-05-10] MEDS: Sodium Chloride 0.9% 1,000 ML IV SCH ×3 (01:05→20:55)
[2023-05-10] MEDS: Acetaminophen 500 MG Tab PO SCH ×3 (02:37→18:36)
[2023-05-10] MEDS: HYDROmorphone 2 MG Tab PO PRN ×3 (03:08→16:28)
[2023-05-10 04:12] LABS: HEMATOCRIT 28.4 % (34.3-46.0); HEMOGLOBIN 9.5 g/dL (11.2-15.5); MEAN CORPUSCULAR HEMOGLOBIN 28.4 pg (31.6-35.5); MEAN CORPUSCULAR HGB CONC 33.5 g/dL (31.6-35.5); MEAN CORPUSCULAR VOLUME 84.8 fL (81.4-99.0); RED BLOOD CELL COUNT 3.35 M/uL (3.77-5.24); WHITE BLOOD CELL COUNT,WBC 6.3 K/uL (3.2-11.0)
[2023-05-10 04:34] LABS: A/G RATIO 0.6 (1.2-2.2); ALANINE AMINOTRANSFERASE,ALT 78 U/L (12-78); ALBUMIN 2.4 g/dL (3.4-5.0); ALKALINE PHOSPHATASE 131 U/L (46-116); ASPARTATE AMNIOTRANSFERASE,AST 17 U/L (15-37); BILIRUBIN TOTAL 0.3 mg/dL (0.2-1.0); BLOOD UREA NITROGEN,BUN 10 mg/dL (7-18); CALCIUM 8.3 mg/dL (8.5-10.1); CARBON DIOXIDE,CO2 28 mmol/L (21-32); CHLORIDE,CL 105 mmol/L (100-108); CREATININE 0.5 mg/dL (0.6-1.0); EST CRCL DRUG DOSING (CG) 149.81 mL/min; ESTIMATED GFR 127 mL/min (>60); GLUCOSE RANDOM 108 mg/dL (74-106); POTASSIUM,K 3.7 mmol/L (3.6-5.2); PROTEIN TOTAL,TP 6.3 g/dL (6.4-8.2); SODIUM,NA 139 mmol/L (140-148)
[2023-05-10 05:31] LABS: ANION GAP 9.7 mmol/L (5.0-14.0)
[2023-05-10] MEDS: Cyclobenzaprine 10 MG Tab PO SCH ×3 (06:13→21:00)
[2023-05-10] MEDS: Nystatin Susp 100,000 Unit/ML 5 ML UD Cup PO SCH ×4 (06:13→21:00)
[2023-05-10] MEDS ORDERED: Central Total Parenteral Nutrition Bag SCH (08:00)
[2023-05-10] MEDS: Scopolamine 1.5 MG Transdermal Patch TOP SCH (08:45)
[2023-05-10] MEDS: 1: AA 5%/Calcium/D15W/Lytes 1,000 ML with MVI, Adult with Vitamin K 10 ML, Zinc/Copper/M IV SCH ×6 (08:47→20:55)
[2023-05-10] MEDS: Escitalopram 10 MG Tab PO SCH (09:51)
[2023-05-10] MEDS: Bacitracin Oint 28.35 GM Tube TOP SCH ×3 (09:51→20:53)
[2023-05-10] MEDS: Docusate Sodium 100 MG Cap PO SCH ×2 (09:51→20:54)
[2023-05-10] MEDS: Bisacodyl 5 MG Tab PO SCH ×2 (09:53→20:54)
[2023-05-10] MEDS: SCOPOLAMINE PATCH CHECK TOP SCH (09:53)
[2023-05-10] MEDS: Pantoprazole 40 MG Vial IV SCH (10:29)
[2023-05-10] MEDS: Benzocaine/Cetylpyridinium/Menthol Lozenge MUCMEM PRN (20:55)
[2023-05-11] MEDS: Acetaminophen 500 MG Tab PO SCH ×3 (02:51→17:45)
[2023-05-11] MEDS: HYDROmorphone 2 MG Tab PO PRN ×3 (02:56→16:09)
[2023-05-11 05:00] LABS: HEMATOCRIT 29.4 % (34.3-46.0); HEMOGLOBIN 9.6 g/dL (11.2-15.5); MEAN CORPUSCULAR HEMOGLOBIN 28.1 pg (31.6-35.5); MEAN CORPUSCULAR HGB CONC 32.7 g/dL (31.6-35.5); RED BLOOD CELL COUNT 3.42 M/uL (3.77-5.24); WHITE BLOOD CELL COUNT,WBC 5.4 K/uL (3.2-11.0)
[2023-05-11] MEDS: Nystatin Susp 100,000 Unit/ML 5 ML UD Cup PO SCH ×4 (05:10→21:11)
[2023-05-11] MEDS: Cyclobenzaprine 10 MG Tab PO SCH ×3 (05:10→21:11)
[2023-05-11 05:21] LABS: A/G RATIO 0.6 (1.2-2.2); ALANINE AMINOTRANSFERASE,ALT 70 U/L (12-78); ALBUMIN 2.3 g/dL (3.4-5.0); ALKALINE PHOSPHATASE 118 U/L (46-116); ANION GAP 7.2 mmol/L (5.0-14.0); ASPARTATE AMNIOTRANSFERASE,AST 21 U/L (15-37); BILIRUBIN TOTAL 0.3 mg/dL (0.2-1.0); BLOOD UREA NITROGEN,BUN 12 mg/dL (7-18); CALCIUM 8.3 mg/dL (8.5-10.1); CARBON DIOXIDE,CO2 29 mmol/L (21-32); CHLORIDE,CL 106 mmol/L (100-108); CREATININE 0.5 mg/dL (0.6-1.0); EST CRCL DRUG DOSING (CG) 149.81 mL/min; ESTIMATED GFR 127 mL/min (>60); GLUCOSE RANDOM 90 mg/dL (74-106); MAGNESIUM 2.1 mg/dL (1.8-2.4); PHOSPHORUS 4.8 mg/dL (2.5-4.9); POTASSIUM,K 3.7 mmol/L (3.6-5.2); SODIUM,NA 142 mmol/L (140-148)
[2023-05-11] MEDS: Bacitracin Oint 28.35 GM Tube TOP SCH ×3 (08:49→21:10)
[2023-05-11] MEDS: Escitalopram 10 MG Tab PO SCH (08:49)
[2023-05-11] MEDS: Docusate Sodium 100 MG Cap PO SCH ×2 (08:49→21:10)
[2023-05-11] MEDS: Bisacodyl 5 MG Tab PO SCH ×2 (08:49→21:10)
[2023-05-11] MEDS: SCOPOLAMINE PATCH CHECK TOP SCH (08:50)
[2023-05-11] MEDS: Sodium Chloride 0.9% 1,000 ML IV SCH (08:50)
[2023-05-11] MEDS: 1: AA 5%/Calcium/D15W/Lytes 1,000 ML with MVI, Adult with Vitamin K 10 ML, Zinc/Copper/M IV SCH ×6 (09:09→21:11)
[2023-05-11] MEDS: Pantoprazole 40 MG Vial IV SCH (10:44)
[2023-05-12] MEDS: Acetaminophen 500 MG Tab PO SCH ×2 (01:00→09:34)
[2023-05-12] MEDS: Sodium Chloride 0.9% 1,000 ML IV SCH (02:54)
[2023-05-12 04:45] LABS: BASOPHILS ABSOLUTE AUTO 0.03 K/uL (0.00-0.10); BASOPHILS PERCENT AUTO 0.6 % (0.1-1.3); EOSINOPHILS ABSOLUTE AUTO 0.24 K/uL (0.00-0.40); EOSINOPHILS PERCENT AUTO 4.6 % (0.0-5.4); HEMATOCRIT 30.7 % (34.3-46.0); HEMOGLOBIN 10.1 g/dL (11.2-15.5); IMMATURE GRAN PERCENT AUTO 0.4 % (0.0-0.7); LYMPHOCYTES ABSOLUTE AUTO 2.14 K/uL (0.8-3.3); LYMPHOCYTES PERCENT AUTO 40.6 % (11.4-47.7); MEAN CORPUSCULAR HEMOGLOBIN 27.7 pg (31.6-35.5); MEAN CORPUSCULAR HGB CONC 32.9 g/dL (31.6-35.5); MEAN CORPUSCULAR VOLUME 84.3 fL (81.4-99.0); MONOCYTES ABSOLUTE AUTO 0.39 K/uL (0.20-0.90); MONOCYTES PERCENT AUTO 7.4 % (3.3-12.6); NEUTROPHILS ABSOLUTE AUTO 2.45 K/uL (1.0-7.6); NEUTROPHILS PERCENT AUTO 46.4 % (40.0-78.1); PLATELET COUNT,PLT 338 K/uL (130-375); RED BLOOD CELL COUNT 3.64 M/uL (3.77-5.24); WHITE BLOOD CELL COUNT,WBC 5.3 K/uL (3.2-11.0)
[2023-05-12 04:49] LABS: IMMATURE GRAN ABSOLUTE AUTO 0.02 K/uL (0.00-0.23)
[2023-05-12 05:00] LABS: A/G RATIO 0.8 (1.2-2.2); ALANINE AMINOTRANSFERASE,ALT 63 U/L (12-78); ALBUMIN 3.1 g/dL (3.4-5.0); ALKALINE PHOSPHATASE 116 U/L (46-116); ASPARTATE AMNIOTRANSFERASE,AST 22 U/L (15-37); BILIRUBIN TOTAL 0.4 mg/dL (0.2-1.0); BLOOD UREA NITROGEN,BUN 12 mg/dL (7-18); CARBON DIOXIDE,CO2 27 mmol/L (21-32); CHLORIDE,CL 104 mmol/L (100-108); CREATININE 0.5 mg/dL (0.6-1.0); EST CRCL DRUG DOSING (CG) 149.81 mL/min; ESTIMATED GFR 127 mL/min (>60); GLUCOSE RANDOM 88 mg/dL (74-106); MAGNESIUM 2.2 mg/dL (1.8-2.4); PHOSPHORUS 4.9 mg/dL (2.5-4.9); POTASSIUM,K 3.9 mmol/L (3.6-5.2); PROTEIN TOTAL,TP 6.9 g/dL (6.4-8.2); SODIUM,NA 140 mmol/L (140-148)
[2023-05-12] MEDS: Cyclobenzaprine 10 MG Tab PO SCH (05:05)
[2023-05-12] MEDS: Nystatin Susp 100,000 Unit/ML 5 ML UD Cup PO SCH ×2 (05:06→09:32)
[2023-05-12] MEDS ORDERED: Lactated Ringers 1,000 ML IV SCH (07:30)
[2023-05-12] MEDS ORDERED: 1: AA 5%/Calcium/D15W/Lytes 1,000 ML with MVI, Adult with Vitamin K 10 ML, Zinc/Copper/M IV SCH ×3 (07:30)
[2023-05-12] MEDS: Docusate Sodium 100 MG Cap PO SCH (08:11)
[2023-05-12] MEDS: Escitalopram 10 MG Tab PO SCH (08:11)
[2023-05-12] MEDS: Bacitracin Oint 28.35 GM Tube TOP SCH (08:11)
[2023-05-12] MEDS: Bisacodyl 5 MG Tab PO SCH (08:11)
[2023-05-12] MEDS: Pantoprazole 40 MG Vial IV SCH (09:33)
[2023-05-12] MEDS: SCOPOLAMINE PATCH CHECK TOP SCH (09:35)
[2023-05-12] MEDS: HYDROmorphone 2 MG Tab PO PRN (10:05)
== END 2023-05-12 12:35 | disposition home or self-care (01) | DRG 229 ==
LOC: JP.ED 17:28 → JP.ICU 19:46 → JP.2SS 04-27 11:35
PROVIDERS: ADMIT Hospitalist; ATTEND Surgery
PROC: 0W9G0ZZ Drainage of Peritoneal Cavity, Open Approach (ICD-10-PCS; 2023-04-22)
PROC: 3E0M05Z Introduction of Adhesion Barrier into Peritoneal Cavity, Open Approach (ICD-10-PCS; 2023-04-22)
PROC: 3E0G8GC Introduction of Other Therapeutic Substance into Upper GI, Via Natural or Artificial Opening Endoscopic (ICD-10-PCS; 2023-04-25)
PROC: 0D758DZ Dilation of Esophagus with Intraluminal Device, Via Natural or Artificial Opening Endoscopic (ICD-10-PCS; 2023-04-28)
PROC: 0D758DZ Dilation of Esophagus with Intraluminal Device, Via Natural or Artificial Opening Endoscopic (ICD-10-PCS; 2023-05-05)
PROC: 02HV33Z Insertion of Infusion Device into Superior Vena Cava, Percutaneous Approach (ICD-10-PCS; principal; 2023-05-07)
PROC: 02H633Z Insertion of Infusion Device into Right Atrium, Percutaneous Approach (ICD-10-PCS; 2023-05-07)
PROC: 02PY33Z Removal of Infusion Device from Great Vessel, Percutaneous Approach (ICD-10-PCS; 2023-05-07)
DX: K95.89 Other complications of other bariatric procedure (principal); K65.1 Peritoneal abscess; F41.9 Anxiety disorder, unspecified; T82.41XA Breakdown (mechanical) of vascular dialysis catheter, initial encounter; F32.A Depression, unspecified; E66.01 Morbid (severe) obesity due to excess calories; Z20.822 Contact with and (suspected) exposure to COVID-19; K22.89 Other specified disease of esophagus; K21.9 Gastro-esophageal reflux disease without esophagitis; Z90.49 Acquired absence of other specified parts of digestive tract; Z98.890 Other specified postprocedural states; Z90.3 Acquired absence of stomach [part of]; Z88.0 Allergy status to penicillin; Z88.8 Allergy status to other drugs, medicaments and biological substances; Z68.33 Body mass index [BMI] 33.0-33.9, adult; Z79.899 Other long term (current) drug therapy; Z56.0 Unemployment, unspecified
CPT/HCPCS: 36415; 74177; 74177-26; 74240; 74240-26; 76000; 77001; 80048; 80053; 81025; 82150; 83605; 83690; 83735; 83880; 84100; 84132; 85025; 85027; 87070; 87075; 87077; 87186; 87205; 88305; 92610-GN; 94667; 96361; 96374; 99222; 99285; 99285-25; A9270-GY; C1874; C9113; J0131; J0171; J0330; J0744; J1100; J1170; J1200; J1335; J1642; J1644; J1790; J2020; J2060; J2185; J2250; J2405; J2704; J2710; J2765; J2795; J3010; J3410; J3411; J3420; J3475; J3480; J3490; J7030; J7050; J7120; J7121; P9047; Q9967; U0002

== ENCOUNTER 2023-05-20 19:45 | Inpatient (IN) | payer BC ==
[2023-05-20] MEDS: Ondansetron 4 MG/2 ML SDV IVPUSH PRN (20:57)
[2023-05-20] MEDS: Dextrose 5%-Lactated Ringers 1,000 ML IV SCH (20:58)
[2023-05-20] MEDS: Scopolamine 1.5 MG Transdermal Patch TRDERM SCH (21:14)
[2023-05-21] MEDS ORDERED: Naloxone 0.4 MG/ML SDV IVPUSH PRN (04:30)
[2023-05-21 04:35] LABS: BASOPHILS ABSOLUTE AUTO 0.03 K/uL (0.00-0.10); BASOPHILS PERCENT AUTO 0.5 % (0.1-1.3); EOSINOPHILS ABSOLUTE AUTO 0.25 K/uL (0.00-0.40); EOSINOPHILS PERCENT AUTO 3.8 % (0.0-5.4); HEMOGLOBIN 10.9 g/dL (11.2-15.5); IMMATURE GRAN PERCENT AUTO 0.3 % (0.0-0.7); LYMPHOCYTES ABSOLUTE AUTO 1.77 K/uL (0.8-3.3); LYMPHOCYTES PERCENT AUTO 26.9 % (11.4-47.7); MEAN CORPUSCULAR HEMOGLOBIN 27.9 pg (31.6-35.5); MEAN CORPUSCULAR VOLUME 84.6 fL (81.4-99.0); MONOCYTES ABSOLUTE AUTO 0.52 K/uL (0.20-0.90); MONOCYTES PERCENT AUTO 7.9 % (3.3-12.6); NEUTROPHILS ABSOLUTE AUTO 3.98 K/uL (1.0-7.6); NEUTROPHILS PERCENT AUTO 60.6 % (40.0-78.1); PLATELET COUNT,PLT 257 K/uL (130-375); WHITE BLOOD CELL COUNT,WBC 6.6 K/uL (3.2-11.0)
[2023-05-21 04:45] LABS: IMMATURE GRAN ABSOLUTE AUTO 0.02 K/uL (0.00-0.23)
[2023-05-21 04:57] LABS: A/G RATIO 0.8 (1.2-2.2); ALANINE AMINOTRANSFERASE,ALT 103 U/L (12-78); ALBUMIN 2.8 g/dL (3.4-5.0); ALKALINE PHOSPHATASE 133 U/L (46-116); ASPARTATE AMNIOTRANSFERASE,AST 39 U/L (15-37); BILIRUBIN TOTAL 0.5 mg/dL (0.2-1.0); BLOOD UREA NITROGEN,BUN 6 mg/dL (7-18); CALCIUM 8.6 mg/dL (8.5-10.1); CARBON DIOXIDE,CO2 27 mmol/L (21-32); CHLORIDE,CL 105 mmol/L (100-108); CREATININE 0.6 mg/dL (0.6-1.0); ESTIMATED GFR 121 mL/min (>60); GLUCOSE RANDOM 117 mg/dL (74-106); MAGNESIUM 2.1 mg/dL (1.8-2.4); PHOSPHORUS 4.3 mg/dL (2.5-4.9); POTASSIUM,K 3.3 mmol/L (3.6-5.2); PROTEIN TOTAL,TP 6.5 g/dL (6.4-8.2); SODIUM,NA 141 mmol/L (140-148)
[2023-05-21] MEDS: HYDROmorphone 1 MG/ML Syringe IVPUSH PRN ×8 (04:57→23:09)
[2023-05-21 06:03] LABS: ANION GAP 12.3 mmol/L (5.0-14.0)
[2023-05-21 06:06] LABS: AMYLASE,BODY FLUID 3415 U/L
[2023-05-21 06:07] LABS: AMYLASE BODY FLUID TYPE JP DRAINAGE #1
[2023-05-21] MEDS ORDERED: Metoclopramide 10 MG/2 ML SDV IV SCH (08:00)
[2023-05-21] MEDS: Ondansetron 4 MG/2 ML SDV IVPUSH PRN (08:34)
[2023-05-21] MEDS ORDERED: Glycopyrrolate 0.2 MG/ML 2 ML SDV IVPUSH ONE ×2 (09:00→13:00)
[2023-05-21] MEDS: [UNRECOGNIZED DRUG - REMARK] TOP SCH (09:54)
[2023-05-21] MEDS ORDERED: Propofol 200 MG/20 ML SDV ONE (12:30)
[2023-05-21] MEDS ORDERED: fentaNYL 100 MCG/2 ML SDV ONE (12:30)
[2023-05-21] MEDS ORDERED: Midazolam 1 MG/ML 2 ML SDV ONE (12:30)
[2023-05-21] MEDS ORDERED: Lidocaine 1% with EPINEPHrine 1:100,000 50 ML MDV INJECT ONE (14:46)
[2023-05-21] MEDS: Dextrose 5%-Lactated Ringers 1,000 ML IV SCH (16:13)
[2023-05-21] MEDS: Metoclopramide 10 MG/2 ML SDV IV SCH ×2 (16:14→21:30)
[2023-05-21] MEDS: Potassium Chloride 20 MEQ in Premix Bag 1 BAG IV SCH ×2 (17:26→19:56)
[2023-05-21] MEDS: 1: AA 5%/Calcium/D15W/Lytes 1,000 ML with MVI, Adult with Vitamin K 10 ML, Zinc/Copper/M IV SCH ×3 (18:50)
[2023-05-21] MEDS: Ondansetron 4 MG/2 ML SDV IVPUSH SCH ×2 (18:50→23:09)
[2023-05-21] MEDS: diphenhydrAMINE 50 MG/ML SDV IVPUSH PRN (21:25)
[2023-05-22] MEDS: HYDROmorphone 1 MG/ML Syringe IVPUSH PRN ×8 (02:52→23:16)
[2023-05-22] MEDS: Metoclopramide 10 MG/2 ML SDV IV SCH ×4 (03:00→21:02)
[2023-05-22] MEDS: 1: AA 5%/Calcium/D15W/Lytes 1,000 ML with MVI, Adult with Vitamin K 10 ML, Zinc/Copper/M IV SCH ×12 (04:35→23:25)
[2023-05-22] MEDS: Ondansetron 4 MG/2 ML SDV IVPUSH PRN (05:31)
[2023-05-22 06:58] LABS: A/G RATIO 0.7 (1.2-2.2); ALANINE AMINOTRANSFERASE,ALT 93 U/L (12-78); ALBUMIN 2.5 g/dL (3.4-5.0); ALKALINE PHOSPHATASE 126 U/L (46-116); ASPARTATE AMNIOTRANSFERASE,AST 31 U/L (15-37); BILIRUBIN TOTAL 0.5 mg/dL (0.2-1.0); BLOOD UREA NITROGEN,BUN 9 mg/dL (7-18); CALCIUM 8.4 mg/dL (8.5-10.1); CARBON DIOXIDE,CO2 27 mmol/L (21-32); CHLORIDE,CL 104 mmol/L (100-108); CREATININE 0.5 mg/dL (0.6-1.0); EST CRCL DRUG DOSING (CG) 149.81 mL/min; ESTIMATED GFR 127 mL/min (>60); GLUCOSE RANDOM 104 mg/dL (74-106); PHOSPHORUS 5.2 mg/dL (2.5-4.9); POTASSIUM,K 3.9 mmol/L (3.6-5.2); PROTEIN TOTAL,TP 6.1 g/dL (6.4-8.2); SODIUM,NA 139 mmol/L (140-148)
[2023-05-22 07:01] LABS: BASOPHILS PERCENT AUTO 0.4 % (0.1-1.3); EOSINOPHILS ABSOLUTE AUTO 0.24 K/uL (0.00-0.40); EOSINOPHILS PERCENT AUTO 4.5 % (0.0-5.4); HEMATOCRIT 30.4 % (34.3-46.0); HEMOGLOBIN 9.9 g/dL (11.2-15.5); IMMATURE GRAN ABSOLUTE AUTO 0.05 K/uL (0.00-0.23); IMMATURE GRAN PERCENT AUTO 0.9 % (0.0-0.7); LYMPHOCYTES PERCENT AUTO 31.9 % (11.4-47.7); MEAN CORPUSCULAR HEMOGLOBIN 28.3 pg (31.6-35.5); MEAN CORPUSCULAR HGB CONC 32.6 g/dL (31.6-35.5); MEAN CORPUSCULAR VOLUME 86.9 fL (81.4-99.0); MONOCYTES ABSOLUTE AUTO 0.45 K/uL (0.20-0.90); MONOCYTES PERCENT AUTO 8.4 % (3.3-12.6); NEUTROPHILS ABSOLUTE AUTO 2.87 K/uL (1.0-7.6); NEUTROPHILS PERCENT AUTO 53.9 % (40.0-78.1); PLATELET COUNT,PLT 218 K/uL (130-375); WHITE BLOOD CELL COUNT,WBC 5.3 K/uL (3.2-11.0)
[2023-05-22 08:31] LABS: ANION GAP 11.9 mmol/L (5.0-14.0); BASOPHILS ABSOLUTE AUTO 0.02 K/uL (0.00-0.10)
[2023-05-22] MEDS ORDERED: Central Total Parenteral Nutrition Bag SCH (09:00)
[2023-05-22] MEDS: Ondansetron 4 MG/2 ML SDV IVPUSH SCH ×4 (09:02→23:19)
[2023-05-22] MEDS: [UNRECOGNIZED DRUG - REMARK] TOP SCH (09:57)
[2023-05-22] MEDS: diphenhydrAMINE 50 MG/ML SDV IVPUSH PRN ×2 (12:21→20:56)
[2023-05-22] MEDS: Scopolamine 1.5 MG Transdermal Patch TRDERM SCH ×2 (19:51→19:52)
[2023-05-22] MEDS: Dextrose 5%-Lactated Ringers 1,000 ML IV SCH (19:56)
[2023-05-22] MEDS: Escitalopram 10 MG Tab PO SCH (20:56)
[2023-05-23] MEDS: HYDROmorphone 1 MG/ML Syringe IVPUSH PRN ×8 (02:12→21:44)
[2023-05-23] MEDS: Metoclopramide 10 MG/2 ML SDV IV SCH ×4 (03:40→21:39)
[2023-05-23] MEDS ORDERED: Lactated Ringers 500 ML IV SCH ×2 (04:15→04:30)
[2023-05-23] MEDS: Ondansetron 4 MG/2 ML SDV IVPUSH SCH ×4 (05:25→23:24)
[2023-05-23 05:34] LABS: HEMATOCRIT 31.9 % (34.3-46.0); HEMOGLOBIN 10.6 g/dL (11.2-15.5); MEAN CORPUSCULAR HGB CONC 33.2 g/dL (31.6-35.5); MEAN CORPUSCULAR VOLUME 84.4 fL (81.4-99.0); RED BLOOD CELL COUNT 3.78 M/uL (3.77-5.24); WHITE BLOOD CELL COUNT,WBC 6.3 K/uL (3.2-11.0)
[2023-05-23 05:55] LABS: A/G RATIO 0.7 (1.2-2.2); ALANINE AMINOTRANSFERASE,ALT 89 U/L (12-78); ALBUMIN 2.7 g/dL (3.4-5.0); ALKALINE PHOSPHATASE 155 U/L (46-116); ASPARTATE AMNIOTRANSFERASE,AST 29 U/L (15-37); BILIRUBIN TOTAL 0.6 mg/dL (0.2-1.0); BLOOD UREA NITROGEN,BUN 14 mg/dL (7-18); CALCIUM 8.4 mg/dL (8.5-10.1); CARBON DIOXIDE,CO2 29 mmol/L (21-32); CHLORIDE,CL 102 mmol/L (100-108); CREATININE 0.6 mg/dL (0.6-1.0); EST CRCL DRUG DOSING (CG) 125.53 mL/min; ESTIMATED GFR 121 mL/min (>60); GLUCOSE RANDOM 100 mg/dL (74-106); PHOSPHORUS 5.1 mg/dL (2.5-4.9); POTASSIUM,K 4.1 mmol/L (3.6-5.2); PROTEIN TOTAL,TP 6.5 g/dL (6.4-8.2); SODIUM,NA 137 mmol/L (140-148)
[2023-05-23 05:57] LABS: ANION GAP 10.1 mmol/L (5.0-14.0)
[2023-05-23] MEDS ORDERED: Central Total Parenteral Nutrition Bag SCH (07:45)
[2023-05-23] MEDS: Bisacodyl 5 MG Tab PO SCH ×2 (09:58→20:29)
[2023-05-23] MEDS: Docusate Sodium 100 MG Cap PO SCH ×2 (09:58→20:29)
[2023-05-23] MEDS: 1: AA 5%/Calcium/D15W/Lytes 1,000 ML with MVI, Adult with Vitamin K 10 ML, Zinc/Copper/M IV SCH ×6 (09:59→19:38)
[2023-05-23] MEDS: [UNRECOGNIZED DRUG - REMARK] TOP SCH (10:01)
[2023-05-23] MEDS: Escitalopram 10 MG Tab PO SCH (20:30)
[2023-05-24] MEDS: HYDROmorphone 1 MG/ML Syringe IVPUSH PRN ×7 (01:50→22:41)
[2023-05-24] MEDS: Metoclopramide 10 MG/2 ML SDV IV SCH ×4 (04:09→22:43)
[2023-05-24 04:38] LABS: HEMATOCRIT 32.2 % (34.3-46.0); HEMOGLOBIN 10.5 g/dL (11.2-15.5); MEAN CORPUSCULAR HEMOGLOBIN 27.6 pg (31.6-35.5); MEAN CORPUSCULAR HGB CONC 32.6 g/dL (31.6-35.5); MEAN CORPUSCULAR VOLUME 84.7 fL (81.4-99.0); RED BLOOD CELL COUNT 3.8 M/uL (3.77-5.24); WHITE BLOOD CELL COUNT,WBC 6.3 K/uL (3.2-11.0)
[2023-05-24 05:07] LABS: A/G RATIO 0.6 (1.2-2.2); ALANINE AMINOTRANSFERASE,ALT 66 U/L (12-78); ALBUMIN 2.5 g/dL (3.4-5.0); ALKALINE PHOSPHATASE 153 U/L (46-116); ASPARTATE AMNIOTRANSFERASE,AST 19 U/L (15-37); BILIRUBIN TOTAL 0.4 mg/dL (0.2-1.0); BLOOD UREA NITROGEN,BUN 12 mg/dL (7-18); CALCIUM 8.6 mg/dL (8.5-10.1); CARBON DIOXIDE,CO2 29 mmol/L (21-32); CHLORIDE,CL 102 mmol/L (100-108); CREATININE 0.5 mg/dL (0.6-1.0); EST CRCL DRUG DOSING (CG) 150.63 mL/min; ESTIMATED GFR 127 mL/min (>60); GLUCOSE RANDOM 103 mg/dL (74-106); PHOSPHORUS 4.9 mg/dL (2.5-4.9); POTASSIUM,K 3.9 mmol/L (3.6-5.2); PROTEIN TOTAL,TP 6.5 g/dL (6.4-8.2); SODIUM,NA 138 mmol/L (140-148)
[2023-05-24 05:18] LABS: ANION GAP 10.9 mmol/L (5.0-14.0)
[2023-05-24] MEDS: diphenhydrAMINE 50 MG/ML SDV IVPUSH PRN ×3 (05:21→20:33)
[2023-05-24] MEDS: 1: AA 5%/Calcium/D15W/Lytes 1,000 ML with MVI, Adult with Vitamin K 10 ML, Zinc/Copper/M IV SCH ×6 (05:45→16:23)
[2023-05-24] MEDS: Ondansetron 4 MG/2 ML SDV IVPUSH SCH ×3 (05:46→17:42)
[2023-05-24] MEDS ORDERED: Central Total Parenteral Nutrition Bag SCH (08:15)
[2023-05-24] MEDS: Docusate Sodium 100 MG Cap PO SCH ×2 (08:41→20:22)
[2023-05-24] MEDS: Bisacodyl 5 MG Tab PO SCH ×2 (08:41→20:22)
[2023-05-24] MEDS: [UNRECOGNIZED DRUG - REMARK] TOP SCH (08:42)
[2023-05-24] MEDS: Dextrose 5%-Lactated Ringers 1,000 ML IV SCH (16:25)
[2023-05-24] MEDS: Scopolamine 1.5 MG Transdermal Patch TRDERM SCH (20:20)
[2023-05-24] MEDS: Escitalopram 10 MG Tab PO SCH (20:23)
[2023-05-25] MEDS: Ondansetron 4 MG/2 ML SDV IVPUSH SCH ×4 (00:43→17:17)
[2023-05-25] MEDS: HYDROmorphone 1 MG/ML Syringe IVPUSH PRN ×7 (02:00→23:43)
[2023-05-25] MEDS: 1: AA 5%/Calcium/D15W/Lytes 1,000 ML with MVI, Adult with Vitamin K 10 ML, Zinc/Copper/M IV SCH ×9 (02:24→23:46)
[2023-05-25] MEDS: Metoclopramide 10 MG/2 ML SDV IV SCH ×4 (04:02→21:24)
[2023-05-25] MEDS: diphenhydrAMINE 50 MG/ML SDV IVPUSH PRN ×4 (04:10→19:36)
[2023-05-25] MEDS: Bisacodyl 5 MG Tab PO SCH ×2 (09:24→21:27)
[2023-05-25] MEDS: Docusate Sodium 100 MG Cap PO SCH ×2 (09:24→21:27)
[2023-05-25] MEDS: [UNRECOGNIZED DRUG - REMARK] TOP SCH (09:26)
[2023-05-25] MEDS: Escitalopram 10 MG Tab PO SCH (21:27)
[2023-05-26] MEDS: Ondansetron 4 MG/2 ML SDV IVPUSH SCH ×5 (01:24→23:52)
[2023-05-26] MEDS: diphenhydrAMINE 50 MG/ML SDV IVPUSH PRN ×5 (01:28→23:51)
[2023-05-26] MEDS: Metoclopramide 10 MG/2 ML SDV IV SCH ×4 (03:40→22:49)
[2023-05-26 04:56] LABS: BASOPHILS PERCENT AUTO 0.3 % (0.1-1.3); EOSINOPHILS ABSOLUTE AUTO 0.26 K/uL (0.00-0.40); EOSINOPHILS PERCENT AUTO 4.3 % (0.0-5.4); HEMATOCRIT 31.3 % (34.3-46.0); HEMOGLOBIN 10.1 g/dL (11.2-15.5); IMMATURE GRAN PERCENT AUTO 0.2 % (0.0-0.7); LYMPHOCYTES PERCENT AUTO 41.6 % (11.4-47.7); MEAN CORPUSCULAR HEMOGLOBIN 27.7 pg (31.6-35.5); MEAN CORPUSCULAR HGB CONC 32.3 g/dL (31.6-35.5); MEAN CORPUSCULAR VOLUME 85.8 fL (81.4-99.0); MONOCYTES ABSOLUTE AUTO 0.46 K/uL (0.20-0.90); MONOCYTES PERCENT AUTO 7.7 % (3.3-12.6); NEUTROPHILS ABSOLUTE AUTO 2.76 K/uL (1.0-7.6); NEUTROPHILS PERCENT AUTO 45.9 % (40.0-78.1); PLATELET COUNT,PLT 251 K/uL (130-375); RED BLOOD CELL COUNT 3.65 M/uL (3.77-5.24)
[2023-05-26 04:57] LABS: BASOPHILS ABSOLUTE AUTO 0.02 K/uL (0.00-0.10); IMMATURE GRAN ABSOLUTE AUTO 0.01 K/uL (0.00-0.23)
[2023-05-26 05:17] LABS: A/G RATIO 0.6 (1.2-2.2); ALANINE AMINOTRANSFERASE,ALT 51 U/L (12-78); ALBUMIN 2.3 g/dL (3.4-5.0); ALKALINE PHOSPHATASE 143 U/L (46-116); ASPARTATE AMNIOTRANSFERASE,AST 21 U/L (15-37); BILIRUBIN TOTAL 0.3 mg/dL (0.2-1.0); BLOOD UREA NITROGEN,BUN 16 mg/dL (7-18); CALCIUM 8.2 mg/dL (8.5-10.1); CARBON DIOXIDE,CO2 29 mmol/L (21-32); CHLORIDE,CL 102 mmol/L (100-108); CREATININE 0.6 mg/dL (0.6-1.0); EST CRCL DRUG DOSING (CG) 125.53 mL/min; ESTIMATED GFR 121 mL/min (>60); GLUCOSE RANDOM 99 mg/dL (74-106); PHOSPHORUS 4.9 mg/dL (2.5-4.9); POTASSIUM,K 3.9 mmol/L (3.6-5.2); SODIUM,NA 138 mmol/L (140-148)
[2023-05-26 05:26] LABS: ANION GAP 10.9 mmol/L (5.0-14.0)
[2023-05-26] MEDS: Bisacodyl 5 MG Tab PO SCH ×2 (08:36→21:03)
[2023-05-26] MEDS: Docusate Sodium 100 MG Cap PO SCH ×2 (08:36→21:03)
[2023-05-26] MEDS: HYDROmorphone 1 MG/ML Syringe IVPUSH PRN ×3 (08:37→21:02)
[2023-05-26] MEDS: [UNRECOGNIZED DRUG - REMARK] TOP SCH (08:37)
[2023-05-26] MEDS: 1: AA 5%/Calcium/D15W/Lytes 1,000 ML with MVI, Adult with Vitamin K 10 ML, Zinc/Copper/M IV SCH ×6 (08:49→19:31)
[2023-05-26] MEDS: Scopolamine 1.5 MG Transdermal Patch TRDERM SCH (21:03)
[2023-05-26] MEDS: Escitalopram 10 MG Tab PO SCH (21:03)
[2023-05-27] MEDS: HYDROmorphone 1 MG/ML Syringe IVPUSH PRN ×7 (01:41→19:18)
[2023-05-27] MEDS: Metoclopramide 10 MG/2 ML SDV IV SCH ×4 (03:54→21:23)
[2023-05-27] MEDS: 1: AA 5%/Calcium/D15W/Lytes 1,000 ML with MVI, Adult with Vitamin K 10 ML, Zinc/Copper/M IV SCH ×6 (05:41→16:10)
[2023-05-27] MEDS: Ondansetron 4 MG/2 ML SDV IVPUSH SCH ×3 (05:42→18:08)
[2023-05-27] MEDS ORDERED: Central Total Parenteral Nutrition Bag SCH (08:00)
[2023-05-27] MEDS: Docusate Sodium 100 MG Cap PO SCH ×2 (09:26→20:00)
[2023-05-27] MEDS: [UNRECOGNIZED DRUG - REMARK] TOP SCH (09:26)
[2023-05-27] MEDS: Bisacodyl 5 MG Tab PO SCH ×2 (09:26→20:00)
[2023-05-27] MEDS: Escitalopram 10 MG Tab PO SCH (20:00)
[2023-05-27] MEDS: diphenhydrAMINE 50 MG/ML SDV IVPUSH PRN (21:19)
[2023-05-28] MEDS: HYDROmorphone 1 MG/ML Syringe IVPUSH PRN (02:26)
[2023-05-28] MEDS: 1: AA 5%/Calcium/D15W/Lytes 1,000 ML with MVI, Adult with Vitamin K 10 ML, Zinc/Copper/M IV SCH ×9 (02:26→21:47)
[2023-05-28] MEDS: Ondansetron 4 MG/2 ML SDV IVPUSH SCH ×4 (02:29→18:48)
[2023-05-28 04:35] LABS: HEMATOCRIT 31.8 % (34.3-46.0); HEMOGLOBIN 10.3 g/dL (11.2-15.5); MEAN CORPUSCULAR HEMOGLOBIN 27.5 pg (31.6-35.5); MEAN CORPUSCULAR HGB CONC 32.4 g/dL (31.6-35.5); RED BLOOD CELL COUNT 3.74 M/uL (3.77-5.24); WHITE BLOOD CELL COUNT,WBC 5.9 K/uL (3.2-11.0)
[2023-05-28] MEDS: Metoclopramide 10 MG/2 ML SDV IV SCH ×4 (04:42→21:50)
[2023-05-28 05:01] LABS: A/G RATIO 0.6 (1.2-2.2); ALANINE AMINOTRANSFERASE,ALT 44 U/L (12-78); ALBUMIN 2.3 g/dL (3.4-5.0); ALKALINE PHOSPHATASE 137 U/L (46-116); ASPARTATE AMNIOTRANSFERASE,AST 18 U/L (15-37); BILIRUBIN TOTAL 0.4 mg/dL (0.2-1.0); BLOOD UREA NITROGEN,BUN 13 mg/dL (7-18); CALCIUM 8.4 mg/dL (8.5-10.1); CARBON DIOXIDE,CO2 28 mmol/L (21-32); CHLORIDE,CL 103 mmol/L (100-108); CREATININE 0.6 mg/dL (0.6-1.0); EST CRCL DRUG DOSING (CG) 125.53 mL/min; ESTIMATED GFR 121 mL/min (>60); GLUCOSE RANDOM 101 mg/dL (74-106); PHOSPHORUS 4.3 mg/dL (2.5-4.9); PROTEIN TOTAL,TP 6.2 g/dL (6.4-8.2); SODIUM,NA 136 mmol/L (140-148)
[2023-05-28] MEDS ORDERED: Acetaminophen 160 MG Tab,Disintegrating PO PRN (07:34)
[2023-05-28] MEDS ORDERED: diphenhydrAMINE 25 MG Cap PO PRN (07:35)
[2023-05-28] MEDS ORDERED: Central Total Parenteral Nutrition Bag SCH (07:45)
[2023-05-28] MEDS: HYDROmorphone 2 MG Tab PO PRN ×2 (08:38→15:57)
[2023-05-28] MEDS: [UNRECOGNIZED DRUG - REMARK] TOP SCH (08:39)
[2023-05-28] MEDS: Bisacodyl 5 MG Tab PO SCH ×2 (08:39→20:22)
[2023-05-28] MEDS: Docusate Sodium 100 MG Cap PO SCH ×2 (08:39→20:22)
[2023-05-28] MEDS: Dextrose 5%-Lactated Ringers 1,000 ML IV SCH (11:03)
[2023-05-28] MEDS: LORazepam 2 MG/ML SDV IVPUSH PRN (20:21)
[2023-05-28] MEDS: Escitalopram 10 MG Tab PO SCH (20:22)
[2023-05-28] MEDS: Scopolamine 1.5 MG Transdermal Patch TRDERM SCH (20:22)
[2023-05-29] MEDS: Ondansetron 4 MG/2 ML SDV IVPUSH SCH ×5 (01:59→23:25)
[2023-05-29] MEDS: Metoclopramide 10 MG/2 ML SDV IV SCH ×4 (04:45→21:20)
[2023-05-29] MEDS: HYDROmorphone 2 MG Tab PO PRN (07:23)
[2023-05-29] MEDS: 1: AA 5%/Calcium/D15W/Lytes 1,000 ML with MVI, Adult with Vitamin K 10 ML, Zinc/Copper/M IV SCH ×3 (07:23)
[2023-05-29] MEDS ORDERED: Central Total Parenteral Nutrition Bag SCH ×2 (08:00→09:00)
[2023-05-29] MEDS: Docusate Sodium 100 MG Cap PO SCH ×2 (08:30→21:13)
[2023-05-29] MEDS: Bisacodyl 5 MG Tab PO SCH ×2 (08:30→21:13)
[2023-05-29] MEDS: [UNRECOGNIZED DRUG - REMARK] TOP SCH (08:31)
[2023-05-29] MEDS: LORazepam 2 MG/ML SDV IVPUSH PRN ×2 (14:30→21:19)
[2023-05-29] MEDS: Dextrose 5%-Lactated Ringers 1,000 ML IV SCH (17:51)
[2023-05-29] MEDS: Escitalopram 10 MG Tab PO SCH (21:15)
[2023-05-29] MEDS ORDERED: 1: AA 5%/Calcium/D15W/Lytes 1,000 ML with MVI, Adult with Vitamin K 10 ML, Zinc/Copper/M IV SCH ×3 (23:59)
[2023-05-30] MEDS: Metoclopramide 10 MG/2 ML SDV IV SCH (04:04)
[2023-05-30 04:17] LABS: HEMATOCRIT 33.4 % (34.3-46.0); MEAN CORPUSCULAR HEMOGLOBIN 27.7 pg (31.6-35.5); MEAN CORPUSCULAR HGB CONC 32.9 g/dL (31.6-35.5); MEAN CORPUSCULAR VOLUME 84.1 fL (81.4-99.0); RED BLOOD CELL COUNT 3.97 M/uL (3.77-5.24); WHITE BLOOD CELL COUNT,WBC 6.1 K/uL (3.2-11.0)
[2023-05-30 04:33] LABS: A/G RATIO 0.6 (1.2-2.2); ALANINE AMINOTRANSFERASE,ALT 58 U/L (12-78); ALBUMIN 2.5 g/dL (3.4-5.0); ALKALINE PHOSPHATASE 142 U/L (46-116); ASPARTATE AMNIOTRANSFERASE,AST 31 U/L (15-37); BILIRUBIN TOTAL 0.3 mg/dL (0.2-1.0); BLOOD UREA NITROGEN,BUN 10 mg/dL (7-18); CALCIUM 8.2 mg/dL (8.5-10.1); CARBON DIOXIDE,CO2 27 mmol/L (21-32); CHLORIDE,CL 103 mmol/L (100-108); CREATININE 0.6 mg/dL (0.6-1.0); EST CRCL DRUG DOSING (CG) 125.53 mL/min; ESTIMATED GFR 121 mL/min (>60); GLUCOSE RANDOM 99 mg/dL (74-106); PHOSPHORUS 4.5 mg/dL (2.5-4.9); POTASSIUM,K 3.7 mmol/L (3.6-5.2); PROTEIN TOTAL,TP 6.5 g/dL (6.4-8.2); SODIUM,NA 136 mmol/L (140-148)
[2023-05-30 04:41] LABS: ANION GAP 9.7 mmol/L (5.0-14.0)
[2023-05-30] MEDS: Ondansetron 4 MG/2 ML SDV IVPUSH SCH (05:56)
[2023-05-30] MEDS ORDERED: Central Total Parenteral Nutrition Bag SCH (07:15)
[2023-05-30] MEDS: LORazepam 2 MG/ML SDV IVPUSH PRN (07:59)
[2023-05-30] MEDS: Bisacodyl 5 MG Tab PO SCH (08:02)
[2023-05-30] MEDS: Docusate Sodium 100 MG Cap PO SCH (08:02)
[2023-05-30] MEDS: [UNRECOGNIZED DRUG - REMARK] TOP SCH (08:03)
== END 2023-05-30 10:45 | disposition home or self-care (01) | DRG 222 ==
LOC: JP.MS 19:45
PROVIDERS: ADMIT Surgery; ATTEND Surgery
PROC: 3E0G3GC Introduction of Other Therapeutic Substance into Upper GI, Percutaneous Approach (ICD-10-PCS; principal; 2023-05-21)
DX: K91.89 Other postprocedural complications and disorders of digestive system (principal); R13.10 Dysphagia, unspecified; K21.9 Gastro-esophageal reflux disease without esophagitis; F41.9 Anxiety disorder, unspecified; F32.A Depression, unspecified; E66.9 Obesity, unspecified; Z98.890 Other specified postprocedural states; Z88.0 Allergy status to penicillin; Z88.8 Allergy status to other drugs, medicaments and biological substances; Z90.3 Acquired absence of stomach [part of]; Z68.32 Body mass index [BMI] 32.0-32.9, adult
CPT/HCPCS: 36415; 74150; 74150-26; 80053; 82150; 83735; 84100; 85025; 85027; 87205; A9270-GY; J1170; J1200; J1642; J2060; J2250; J2405; J2704; J2765; J3010; J3480; J3490; J7120; J7121

== ENCOUNTER 2023-07-19 09:05 | Day surgery (SDC) | payer BC ==
[2023-07-19] MEDS ORDERED: Lactated Ringers 1,000 ML IV SCH (09:45)
[2023-07-19] MEDS ORDERED: Midazolam 1 MG/ML 2 ML SDV ONE (10:12)
[2023-07-19] MEDS ORDERED: fentaNYL 100 MCG/2 ML SDV ONE (10:12)
[2023-07-19] MEDS ORDERED: Propofol 200 MG/20 ML SDV ONE (10:13)
[2023-07-19] MEDS ORDERED: Glycopyrrolate 0.2 MG/ML 2 ML SDV IVPUSH ONE (10:15)
[2023-07-19] MEDS ORDERED: Cyanocobalamin (Vitamin B12) 1,000 MCG/ML SDV IM ONE (11:00)
[2023-07-19] MEDS ORDERED: MVI, Adult with Vitamin K 10 ML, Thiamine 200 MG, Zinc/Copper/Manganese/Selenium 1 ML i... IV ONE ×4 (11:00)
== END 2023-07-19 13:22 | disposition home or self-care (01) ==
LOC: JP.SDS 09:05
PROVIDERS: ATTEND Surgery
DX: K20.90 Esophagitis, unspecified without bleeding (principal); F41.9 Anxiety disorder, unspecified; Z98.84 Bariatric surgery status
CPT/HCPCS: 43235; 81025; J2250; J2704; J3010; J3411; J3420; J7120; J3490